=== PATIENT | female | born 1935 | race Caucasian/White ===

== ENCOUNTER → 2016-08-30 | Outpatient (CLI) | payer MEDICARE, OTHER ==
--- NOTE | 2016-09-01 14:46 | ENG ---
DATE OF SERVICE: 08/30/2016 INDICATION FOR EXAMINATION: [id number] presented with the chief complaint of vertigo, described as lightheadedness and at times a spinning sensation and unsteadiness. MEDICATIONS: Tenormin, Lasix, Antivert, Cozaar, aspirin. CALORIC TEST: No unilateral weakness. No directional preponderance. FFS: Negative. GAZE TEST: Negative. SINUSOIDAL TRACKING TEST: No significant breakups. OKN TEST: No asymmetry. POSITIONAL NYSTAGMUS: Supine negative. Right lateral negative. Left lateral negative. Head hanging negative. PIYUSH-HALLPIKE TEST: Negative. CONCLUSION: Normal electronystagmogram.
== END | disposition home or self-care (01) ==
LOC: NEUROMAIN 08:33
PROVIDERS: ATTEND Psychiatry & Neurology Neurology
DX: R42 Dizziness and giddiness (principal)
CPT/HCPCS: 92537; 92540

== ENCOUNTER 2018-01-12 12:40 | Inpatient (IN) | payer MEDICARE, OTHER ==
[2018-01-12] MEDS ORDERED: SODIUM CHLORIDE 0.9% 1,000 ML IV ONE ×2 (13:05→16:48)
--- NOTE | 2018-01-12 13:13 | ED ---
General Adult HPI - General Chief complaint: Altered Mental Status Stated complaint: Altered mental status Time Seen by Provider: 01/12/18 12:50 Source: EMS, RN notes reviewed Mode of arrival: EMS Limitations: language barrier, altered mental status - History of Present Illness Initial comments: This is an 82-year-old female who presents emergency Department complaining of being on the floor. Neighbors found her today but the story is confusing because she has a language barrier. Patient states she may have been on the floor for 7 days she's not incontinent of stool or urine so it is unclear how long she was on the floor. Patient states she's had a long-term dizziness and was dizzy and that is why she ended up on the floor. Patient states she was unable to get up because then she became very weak and couldn't get off the floor on her own. Patient denies any area of specific pain. Patient denies any difficulty breathing or chest pain. Patient denies any vomiting or diarrhea. Patient was aware of the month and year but was unable to tell us what day it was. No family member or caregivers with the patient's was difficult to determine what her baseline normally is and with the language barrier it makes it even more difficult to understand whether she has altered her - Related Data Home Medications Medication Instructions Recorded Confirmed Aspirin [Children's Aspirin] 81 mg PO DAILY 01/12/18 01/12/18 Atenolol [Tenormin] 50 mg PO HS 01/12/18 01/12/18 Atorvastatin Calcium [Lipitor] 10 mg PO DAILY 01/12/18 01/12/18 Furosemide [Lasix] 20 mg PO DAILY 01/12/18 01/12/18 Losartan [Cozaar] 50 mg PO DAILY 01/12/18 01/12/18 Meclizine [Antivert] 25 mg PO HS 01/12/18 01/12/18 Omeprazole 40 mg PO DAILY 01/12/18 01/12/18 Allergies Allergy/AdvReac Type Severity Reaction Status Date / Time No Known Allergies Allergy Verified 01/12/18 13:42 Review of Systems ROS Statement: Those systems with pertinent positive or pertinent negative responses have been documented in the HPI. ROS Other: All systems not noted in ROS Statement are negative. Past Medical History Past Medical History: Unable to Obtain History of Any Multi-Drug Resistant Organisms: Unobtainable Past Surgical History: Unable to Obtain Past Psychological History: Unable to Obtain Smoking Status: Never smoker Past Alcohol Use History: None Reported Past Drug Use History: None Reported General Exam - General Exam Comments Initial Comments: GENERAL: Patient is well-developed and well-nourished. Patient is nontoxic and well- hydrated and is in distress. ENT: Neck is soft and supple. No significant lymphadenopathy is noted. Oropharynx is clear. Moist mucous membranes. Neck has full range of motion without eliciting any pain. EYES: The sclera were anicteric and conjunctiva were pink and moist. Extraocular movements were intact and pupils were equal round and reactive to light. Eyelids were unremarkable. PULMONARY: Patient has crackles in the right base CARDIOVASCULAR: There is a regular rate and rhythm without any murmurs gallops or rubs. ABDOMEN: Soft and nontender with normal bowel sounds. No palpable organomegaly was noted. There is no palpable pulsatile mass. SKIN: Skin is clear with no lesions or rashes and otherwise unremarkable. NEUROLOGIC: Patient is alert and oriented x3. Cranial nerves II through XII are grossly intact. Motor and sensory are also intact. Normal speech, volume and content. Symmetrical smile. MUSCULOSKELETAL: Normal extremities with adequate strength and full range of motion. Patient has a superficial abrasion on the left knee. No lower extremity swelling or edema. No calf tenderness. LYMPHATICS: No significant lymphadenopathy is noted PSYCHIATRIC: Normal psychiatric evaluation. Limitations: language barrier, altered mental status Course Vital Signs 01/12/18 01/12/18 12:47 15:41 Temperature 97.5 F L Pulse Rate 67 51 L Respiratory 20 18 Rate Blood Pressure 124/47 118/55 O2 Sat by Pulse 99 99 Oximetry Medical Decision Making - Medical Decision Making EKG is of poor quality does however show a normal sinus rhythm at 61 bpm IA interval is 182 QRS is 92 QT interval 44 QTC is 487. Patient's EKG does not show any obvious ST segment elevation 1 patient's shaking settled down a repeat EKG was done shows sinus bradycardia 54 bpm IA interval 140 QRS is 90 QT intervals 574 QTC is 455. Patient's EKG showed some T-wave inversions in the precordial leads V3 and V4. No old EKG was there to compare to Chest x-ray shows no acute abnormality. CT of the brain shows no acute abnormality. Patient's urine was possibly infected so I gave the patient antibiotic of Rocephin 1 g. I spoke with the hospitalist for Dr. Angel Robertson and admitted the patient and wrote admitting orders. - Lab Data Result diagrams: 01/12/18 13:47 01/12/18 13:47 Lab Results 01/12/18 01/12/18 01/12/18 Range/Units 13:47 13:47 13:47 WBC 16.2 H (3.8-10.6) k/uL RBC 4.70 (3.80-5.40) m/uL Hgb 12.4 (11.4-16.0) gm/dL Hct 38.2 (34.0-46.0) % MCV 81.3 (80.0-100.0) fL MCH 26.3 (25.0-35.0) pg MCHC 32.4 (31.0-37.0) g/dL RDW 13.9 (11.5-15.5) % Plt Count 362 (150-450) k/uL Neutrophils % 84 % Lymphocytes % 10 % Monocytes % 2 % Eosinophils % 0 % Basophils % 1 % Neutrophils # 13.6 H (1.3-7.7) k/uL Lymphocytes # 1.7 (1.0-4.8) k/uL Monocytes # 0.4 (0-1.0) k/uL Eosinophils # 0.1 (0-0.7) k/uL Basophils # 0.2 (0-0.2) k/uL PT (9.0-12.0) sec INR (<1.2) APTT (22.0-30.0) sec Sodium 137 (137-145) mmol/L Potassium 4.9 (3.5-5.1) mmol/L Chloride 102 (98-107) mmol/L Carbon Dioxide 21 L (22-30) mmol/L Anion Gap 14 mmol/L BUN 66 H (7-17) mg/dL Creatinine 1.86 H (0.52-1.04) mg/dL Est GFR (CKD-EPI)AfAm 29 (>60 ml/min/1.73 sqM) Est GFR (CKD-EPI)NonAf 25 (>60 ml/min/1.73 sqM) Glucose 105 H (74-99) mg/dL Plasma Lactic Acid Bo (0.7-2.0) mmol/L Calcium 9.1 (8.4-10.2) mg/dL Total Bilirubin 1.4 H (0.2-1.3) mg/dL AST 137 H (14-36) U/L ALT 60 H (9-52) U/L Alkaline Phosphatase 98 (38-126) U/L Total Creatine Kinase 996 H (30-135) U/L CK-MB (CK-2) 7.8 H (0.0-2.4) ng/mL CK-MB (CK-2) Rel Index 0.8 Troponin I 0.034 (0.000-0.034) ng/mL Total Protein 8.4 H (6.3-8.2) g/dL Albumin 4.0 (3.5-5.0) g/dL Urine Color Urine Appearance (Clear) Urine pH (5.0-8.0) Ur Specific [place] (1.001-1.035) Urine Protein (Negative) Urine Glucose (UA) (Negative) Urine Ketones (Negative) Urine Blood (Negative) Urine Nitrite (Negative) Urine Bilirubin (Negative) Urine Urobilinogen (<2.0) mg/dL Ur Leukocyte Esterase (Negative) Urine RBC (0-5) /hpf Urine WBC (0-5) /hpf Ur Squamous Epith Cells (0-4) /hpf Urine Bacteria (None) /hpf Hyaline Casts (0-2) /lpf Urine Mucus (None) /hpf Urine Opiates Screen (NotDetected) Ur Oxycodone Screen (NotDetected) Urine Methadone Screen (NotDetected) Ur Propoxyphene Screen (NotDetected) Ur Barbiturates Screen (NotDetected) U Tricyclic Antidepress (NotDetected) Ur Phencyclidine Scrn (NotDetected) Ur Amphetamines Screen (NotDetected) U Methamphetamines Scrn (NotDetected) U Benzodiazepines Scrn (NotDetected) Urine Cocaine Screen (NotDetected) U Marijuana (THC) Screen (NotDetected) 01/12/18 01/12/18 01/12/18 Range/Units 13:47 13:47 15:35 WBC (3.8-10.6) k/uL RBC (3.80-5.40) m/uL Hgb (11.4-16.0) gm/dL Hct (34.0-46.0) % MCV (80.0-100.0) fL MCH (25.0-35.0) pg MCHC (31.0-37.0) g/dL RDW (11.5-15.5) % Plt Count (150-450) k/uL Neutrophils % % Lymphocytes % % Monocytes % % Eosinophils % % Basophils % % Neutrophils # (1.3-7.7) k/uL Lymphocytes # (1.0-4.8) k/uL Monocytes # (0-1.0) k/uL Eosinophils # (0-0.7) k/uL Basophils # (0-0.2) k/uL PT 9.6 (9.0-12.0) sec INR 1.0 (<1.2) APTT 23.0 (22.0-30.0) sec Sodium (137-145) mmol/L Potassium (3.5-5.1) mmol/L Chloride (98-107) mmol/L Carbon Dioxide (22-30) mmol/L Anion Gap mmol/L BUN (7-17) mg/dL Creatinine (0.52-1.04) mg/dL Est GFR (CKD-EPI)AfAm (>60 ml/min/1.73 sqM) Est GFR (CKD-EPI)NonAf (>60 ml/min/1.73 sqM) Glucose (74-99) mg/dL Plasma Lactic Acid Bo 1.4 (0.7-2.0) mmol/L Calcium (8.4-10.2) mg/dL Total Bilirubin (0.2-1.3) mg/dL AST (14-36) U/L ALT (9-52) U/L Alkaline Phosphatase (38-126) U/L Total Creatine Kinase (30-135) U/L CK-MB (CK-2) (0.0-2.4) ng/mL CK-MB (CK-2) Rel Index Troponin I (0.000-0.034) ng/mL Total Protein (6.3-8.2) g/dL Albumin (3.5-5.0) g/dL Urine Color Yellow Urine Appearance Cloudy H (Clear) Urine pH 5.5 (5.0-8.0) Ur Specific [place] 1.016 (1.001-1.035) Urine Protein 1+ H (Negative) Urine Glucose (UA) Negative (Negative) Urine Ketones Negative (Negative) Urine Blood Small H (Negative) Urine Nitrite Negative (Negative) Urine Bilirubin Negative (Negative) Urine Urobilinogen 2.0 (<2.0) mg/dL Ur Leukocyte Esterase Moderate H (Negative) Urine RBC 1 (0-5) /hpf Urine WBC 9 H (0-5) /hpf Ur Squamous Epith Cells 1 (0-4) /hpf Urine Bacteria Many H (None) /hpf Hyaline Casts 13 H (0-2) /lpf Urine Mucus Occasional H (None) /hpf Urine Opiates Screen Not Detected (NotDetected) Ur Oxycodone Screen Not Detected (NotDetected) Urine Methadone Screen Not Detected (NotDetected) Ur Propoxyphene Screen Not Detected (NotDetected) Ur Barbiturates Screen Not Detected (NotDetected) U Tricyclic Antidepress Not Detected (NotDetected) Ur Phencyclidine Scrn Not Detected (NotDetected) Ur Amphetamines Screen Not Detected (NotDetected) U Methamphetamines Scrn Not Detected (NotDetected) U Benzodiazepines Scrn Not Detected (NotDetected) Urine Cocaine Screen Not Detected (NotDetected) U Marijuana (THC) Screen Not Detected (NotDetected) Disposition Clinical Impression: Urinary tract infection, Renal insufficiency, Altered mental status, Generalized weakness, Leukocytosis, Dehydration Disposition: ADMITTED IP TO THIS HOSP Referrals: Angel Robertson MD [Primary Care Provider] - 1-2 days Time of Disposition: 16:48
[2018-01-12 14:07] LABS: Basophils # (A) 0.2 k/uL (0-0.2); Basophils % (A) 1 %; Eosinophils # (A) 0.1 k/uL (0-0.7); Eosinophils % (A) 0 %; HCT 38.2 % (34.0-46.0); HGB 12.4 gm/dL (11.4-16.0); Lymphocytes # (A) 1.7 k/uL (1.0-4.8); Lymphocytes % (A) 10 %; MCH 26.3 pg (25.0-35.0); MCHC 32.4 g/dL (31.0-37.0); MCV 81.3 fL (80.0-100.0); Mean Platelet Volume 7.1; Monocytes # (A) 0.4 k/uL (0-1.0); Monocytes % (A) 2 %; Neutrophils # (A) 13.6 k/uL (1.3-7.7); Neutrophils % (A) 84 %; Platelet Count 362 k/uL (150-450); RDW 13.9 % (11.5-15.5); WBC 16.2 k/uL (3.8-10.6)
--- NOTE | 2018-01-12 14:10 | CT ---
EXAMINATION TYPE: CT brain wo con DATE OF EXAM: 01/12/2018 HISTORY: Altered mental status. CT DLP: 858.3 mGycm. Automated Exposure Control for Dose Reduction was Utilized. TECHNIQUE: CT scan of the head is performed without contrast. COMPARISON: None. FINDINGS: There is no acute intracranial hemorrhage or midline shift identified. There is diffuse v entricular and sulcal prominence consistent with diffuse age-related cerebral atrophy. There is low- attenuation in the periventricular white matter consistent with chronic small vessel ischemic change. There are air-fluid levels in visualized portion of both maxillary sinuses. There is mild mucosal th ickening in bilateral sphenoid sinus with air-fluid level on the right side present. There are air-fl uid levels in bilateral frontal sinuses. There is near complete opacification of bilateral ethmoid si nuses. Globes are intact bilaterally. Vascular dilatation distal internal carotid arteries is present . IMPRESSION: No acute intracranial hemorrhage or midline shift. There is moderate diffuse age-relate d cerebral atrophy and mild to moderate chronic small vessel ischemic change noted. Acute on chronic paranasal sinus disease is seen as detailed above
[2018-01-12 14:28] LABS: Calcium 9.1 mg/dL (8.4-10.2); Total Bilirubin 1.4 mg/dL (0.2-1.3); Total Protein 8.4 g/dL (6.3-8.2)
[2018-01-12 14:37] LABS: Potassium 4.9 mmol/L (3.5-5.1)
[2018-01-12 14:43] LABS: Creatine Kinase MB 7.8 ng/mL (0.0-2.4); Troponin I 0.034 ng/mL (0.000-0.034)
--- NOTE | 2018-01-12 14:45 | XR ---
EXAMINATION TYPE: XR chest 2V DATE OF EXAM: 01/12/2018 COMPARISON: NONE HISTORY: Altered mental status and weakness. TECHNIQUE: Frontal and lateral views of the chest are obtained. FINDINGS: There is chronic parenchymal change without suspicious focal air space opacity, pleural ef fusion, or pneumothorax seen. The cardiac silhouette size is upper limits of normal. The osseous s tructures are demineralized. Dextroconvex scoliosis centered in the lower thoracic spine is present. IMPRESSION: No suspicious acute pulmonary process.
[2018-01-12 14:46] LABS: Prothrombin Time 9.6 sec (9.0-12.0)
[2018-01-12 15:52] LABS: Appearance,Urine Cloudy (Clear); Bacteria,Urine Many /hpf; Bilirubin,Urine Negative (Negative); Blood,Urine Small (Negative); Color,Urine Yellow; Glucose,Urine (UA) Negative (Negative); Hyaline Casts,Urine 13 /lpf (0-2); Ketones,Urine Negative (Negative); Leukocyte Esterase,Urine Moderate (Negative); Mucus,Urine Occasional /hpf; Nitrite,Urine Negative (Negative); PH, Urine 5.5 (5.0-8.0); Protein,Urine 1+ (Negative); RBC,Urine 1 /hpf (0-5); Specific Gravity,Urine 1.016 (1.001-1.035); Squamous Epithelial Cell,Urine 1 /hpf (0-4); WBC,Urine 9 /hpf (0-5)
[2018-01-12 16:03] LABS: Amphetamine Screen,Urine Not Detected (NotDetected); Barbiturate Screen,Urine Not Detected (NotDetected); Benzodiazepines Screen,Urine Not Detected (NotDetected); Cocaine Screen,Urine Not Detected (NotDetected); Methadone Screen, Urine Not Detected (NotDetected); Opiate Screen,Urine Not Detected (NotDetected); Oxycodone Screen, Urine Not Detected (NotDetected); Phencyclidine Screen,Urine Not Detected (NotDetected); Tricyclic Antidepressant,Urine Not Detected (NotDetected); Urn Cannabinoid Scrn Not Detected (NotDetected)
[2018-01-12] MEDS: ATENOLOL 50 MG TAB PO SCH (21:28)
[2018-01-12] MEDS: MECLIZINE 25 MG TAB PO SCH (21:29)
[2018-01-12] MEDS: HEPARIN SODIUM,PORCINE 5,000 UNIT/ML 1 ML VIAL SQ SCH (21:29)
[2018-01-13 07:16] LABS: Basophils # (A) 0.2 k/uL (0-0.2); Basophils % (A) 1 %; Eosinophils # (A) 0.1 k/uL (0-0.7); Eosinophils % (A) 0 %; HCT 33.9 % (34.0-46.0); Lymphocytes # (A) 1.7 k/uL (1.0-4.8); Lymphocytes % (A) 13 %; MCH 26.2 pg (25.0-35.0); MCHC 32.5 g/dL (31.0-37.0); MCV 80.6 fL (80.0-100.0); Mean Platelet Volume 6.7; Monocytes # (A) 0.3 k/uL (0-1.0); Monocytes % (A) 3 %; Neutrophils # (A) 10.9 k/uL (1.3-7.7); Neutrophils % (A) 81 %; Platelet Count 267 k/uL (150-450); RBC 4.21 m/uL (3.80-5.40); WBC 13.5 k/uL (3.8-10.6)
[2018-01-13 07:25] LABS: Calcium 8.4 mg/dL (8.4-10.2); Potassium 3.1 mmol/L (3.5-5.1)
[2018-01-13] MEDS: ASPIRIN 81 MG PO SCH (10:30)
[2018-01-13] MEDS: LOSARTAN 50 MG TAB PO SCH (10:30)
[2018-01-13] MEDS: PANTOPRAZOLE 40 MG TABLET PO SCH (10:30)
[2018-01-13] MEDS: HEPARIN SODIUM,PORCINE 5,000 UNIT/ML 1 ML VIAL SQ SCH ×3 (10:30→19:56)
[2018-01-13] MEDS: ATORVASTATIN 10 MG TAB PO SCH (10:30)
--- NOTE | 2018-01-13 12:04 | P.HPIM ---
History of Present Illness H&P Date: 01/13/18 Chief Complaint: Patient was found on the floor by a neighbor This is an 82-year-old female one of Dr. 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 history significant for hypertension and hypertensive cardiovascular disease, hyperlipidemia, history of possible arthritis, patient definitely has a significant leg with barrier could not tell me exactly what happened however by reviewing the records from the emergency department patient was brought into the ER by EMS after neighbor found her on the floor according to them for appears to be more than 7 days, patient's CPK was elevated at 1000, she was found to have a mild UTI, computed tomography scan of the brain did not show any evidence of acute abnormalities, she does appear to have moderate brain atrophy, chest x-ray did not show any acute abnormalities, patient also was found to have acute kidney injury on top of what appears to be chronic kidney disease. She was started on IV fluid resuscitation the form of normal saline, this would be switched to D5 half-normal saline at 75 mL an hour. Review of Systems Constitutional: Reports fatigue, Reports malaise, Reports weakness Eyes: denies blurred vision, denies bulging eye, denies decreased vision, denies diplopia Ears: deny: decreased hearing Ears, nose, mouth and throat: Denies dysphagia, Denies neck fullness/pressure, Denies swelling in throat, Denies sore throat Cardiovascular: Reports dyspnea on exertion, Reports high blood pressure, Denies chest pain, Denies decreased exercise tolerance, Denies rapid heart beat , Denies shortness of breath Respiratory: Denies congestion, Denies cough with sputum, Denies home oxygen, Denies sleep apnea, Denies snoring, Denies wheezing Gastrointestinal: Denies abdominal pain, Denies bloating, Denies BRBPR, Denies heartburn, Denies melena, Denies nausea, Denies vomiting Genitourinary: Denies dysuria, Denies hematuria Musculoskeletal: Reports myalgias Musculoskeletal: absent: ankle pain, ankle stiffness, ankle swelling, elbow pain , elbow stiffness, elbow swelling, foot pain, foot stiffness, foot swelling, hand pain, hand stiffness, hand swelling, hip pain, hip stiffness, hip swelling , knee pain, knee stiffness, knee swelling, shoulder pain, shoulder stiffness, shoulder swelling, wrist pain, wrist stiffness, wrist swelling Integumentary: Denies pruritus, Denies rash Neurological: Denies numbness, Denies weakness Psychiatric: Denies anxiety, Denies depression Endocrine: Denies fatigue, Denies weight change Past Medical History Past Medical History: GERD/Reflux, Hyperlipidemia, Hypertension, Osteoarthritis (OA) History of Any Multi-Drug Resistant Organisms: Unobtainable Additional Past Surgical History / Comment(s): Bilateral cataract surgery. Past Psychological History: Unable to Obtain Smoking Status: Never smoker Past Alcohol Use History: None Reported Past Drug Use History: None Reported - Past Family History Mother Family Medical History: Coronary Artery Disease (CAD) (Mother in her 90s from CAD.) Father Family Medical History: No Reported History (Father in his 80s) Additional Family Medical History / Comment(s): Patient does not have any siblings and no kids. Medications and Allergies Home Medications Medication Instructions Recorded Confirmed Type Aspirin [Children's Aspirin] 81 mg PO DAILY 01/12/18 01/12/18 History Atenolol [Tenormin] 50 mg PO HS 01/12/18 01/12/18 History Atorvastatin Calcium [Lipitor] 10 mg PO DAILY 01/12/18 01/12/18 History Furosemide [Lasix] 20 mg PO DAILY 01/12/18 01/12/18 History Losartan [Cozaar] 50 mg PO DAILY 01/12/18 01/12/18 History Meclizine [Antivert] 25 mg PO HS 01/12/18 01/12/18 History Omeprazole 40 mg PO DAILY 01/12/18 01/12/18 History Allergies Allergy/AdvReac Type Severity Reaction Status Date / Time No Known Allergies Allergy Verified 01/12/18 13:42 Physical Exam Vitals: Vital Signs Temp Pulse Pulse Resp BP BP Pulse Ox 01/13/18 06:02 98.7 F 63 18 103/55 94 L 01/12/18 23:00 96.9 F L 58 L 16 123/59 94 L 01/12/18 19:01 97.4 F L 61 16 119/58 96 01/12/18 18:05 98.8 F 56 L 16 140/61 100 01/12/18 15:41 51 L 18 118/55 99 01/12/18 12:47 97.5 F L 67 20 124/47 99 Intake and Output 01/12/18 01/13/18 01/13/18 22:59 06:59 14:59 Other: Voiding Method Bedside Commode # Voids 1 1 # Bowel Movements 1 1 - Constitutional General appearance: average body habitus, no acute distress - EENT Eyes: anicteric sclerae, EOMI, PERRLA, no ptosis, no scleral icterus, normal appearance ENT: hearing grossly normal, normal oropharynx, no thrush Ears: bilateral: normal - Neck Neck: no lymphadenopathy, normal ROM, no rigidity, no stridor Carotids: bilateral: upstroke normal Thyroid: bilateral: normal size - Respiratory Respiratory: bilateral: diminished, negative: dullness, rales, rhonchi, wheezing , prolonged expiration, prolonged inspiration - Cardiovascular Rhythm: regular Heart sounds: normal: S1, S2 Abnormal Heart Sounds: systolic murmur, no S3 Gallop, no S4 Gallop - Gastrointestinal General gastrointestinal: normal bowel sounds, soft, no splenomegaly, no tenderness, no umbilical hernia - Integumentary Integumentary: normal, normal turgor - Neurologic Neurologic: CNII-XII intact - Musculoskeletal Musculoskeletal: generalized weakness - Psychiatric Psychiatric: A&O x's 3 Results CBC & Chem 7: 01/13/18 06:57 01/13/18 06:57 Labs: Abnormal Lab Results - Last 24 Hours (Table) 01/12/18 01/12/18 01/12/18 Range/Units 13:47 13:47 13:47 WBC 16.2 H (3.8-10.6) k/uL Hgb (11.4-16.0) gm/dL Hct (34.0-46.0) % Neutrophils # 13.6 H (1.3-7.7) k/uL Potassium (3.5-5.1) mmol/L Chloride (98-107) mmol/L Carbon Dioxide 21 L (22-30) mmol/L BUN 66 H (7-17) mg/dL Creatinine 1.86 H (0.52-1.04) mg/dL Glucose 105 H (74-99) mg/dL Total Bilirubin 1.4 H (0.2-1.3) mg/dL AST 137 H (14-36) U/L ALT 60 H (9-52) U/L Total Creatine Kinase 996 H (30-135) U/L CK-MB (CK-2) 7.8 H (0.0-2.4) ng/mL Total Protein 8.4 H (6.3-8.2) g/dL Urine Appearance (Clear) Urine Protein (Negative) Urine Blood (Negative) Ur Leukocyte Esterase (Negative) Urine WBC (0-5) /hpf Urine Bacteria (None) /hpf Hyaline Casts (0-2) /lpf Urine Mucus (None) /hpf 01/12/18 01/13/18 01/13/18 Range/Units 15:35 06:57 06:57 WBC 13.5 H (3.8-10.6) k/uL Hgb 11.0 L (11.4-16.0) gm/dL Hct 33.9 L (34.0-46.0) % Neutrophils # 10.9 H (1.3-7.7) k/uL Potassium 3.1 L (3.5-5.1) mmol/L Chloride 109 H (98-107) mmol/L Carbon Dioxide 20 L (22-30) mmol/L BUN 56 H (7-17) mg/dL Creatinine 1.49 H (0.52-1.04) mg/dL Glucose (74-99) mg/dL Total Bilirubin (0.2-1.3) mg/dL AST (14-36) U/L ALT (9-52) U/L Total Creatine Kinase (30-135) U/L CK-MB (CK-2) (0.0-2.4) ng/mL Total Protein (6.3-8.2) g/dL Urine Appearance Cloudy H (Clear) Urine Protein 1+ H (Negative) Urine Blood Small H (Negative) Ur Leukocyte Esterase Moderate H (Negative) Urine WBC 9 H (0-5) /hpf Urine Bacteria Many H (None) /hpf Hyaline Casts 13 H (0-2) /lpf Urine Mucus Occasional H (None) /hpf Thrombosis Risk Factor Assmnt - DVT/VTE Prophylaxis DVT/VTE Prophylaxis: Pharmacologic Prophylaxis ordered, Mechanical Prophylaxis ordered Assessment and Plan Assessment: Assessment and plan: 1. Possible syncopal episode. Patient will be monitored for the next 24 hours on the telemetry. Patient has suffered from significant diseases for quite sometime as a matter fact she has been taking meclizine not short of this is peripheral dizziness or other etiology such as cardiac arrhythmias was involved. 2. UTI with sepsis. Continue IV anabiotic in the form of Rocephin, continue IV fluid resuscitation the form of D5 half-normal saline at 75 mL an hour, monitor the patient input and output, check urine culture and blood culture. 3. Acute kidney injury on top of chronic kidney disease stage III. Continue IV fluid resuscitation, monitor the patient CMP over the next 24 hours. 4. Elevated CPK with mild rhabdo. Continue IV fluid check CPK again the next 24 hours. 5. Hypertension and hypertensive cardiovascular disease. Continue losartan 50 mg orally once every day as well as atenolol 50 mg orally once every day. 6. Hyperlipidemia. Continue Lipitor 10 mg orally once every day. 7. GERD. Continue Protonix 40 mg orally once every day. 8. DVT prophylaxis. Continue heparin 5000 units every 12 hours. 9. Patient is full code. 10. Admitted to inpatient. Estimated length of stay 2 midnights. 11. Social work consultation as well as physical therapy evaluation.
[2018-01-13] MEDS ORDERED: POTASSIUM CHLORIDE ER 20 MEQ TAB.ER PO STA (12:07)
[2018-01-13] MEDS: SODIUM CHLORIDE 0.45% 1,000 ML IV SCH (12:42)
--- NOTE | 2018-01-13 17:22 | US ---
EXAMINATION TYPE: US carotid duplex BILAT DATE OF EXAM: 01/13/2018 COMPARISON: NONE CLINICAL HISTORY: syncope. EXAM MEASUREMENTS: RIGHT: Peak Systolic Velocity (PSV) cm/sec ----- Right CCA: 101.1 ----- Right ICA: 296.1 ----- Right ECA: 180.3 ICA/CCA ratio: 2.9 RIGHT: End Diastole cm/sec ----- Right CCA: 19.8 ----- Right ICA: 60.1 ----- Right ECA: 0.0 LEFT: Peak Systolic Velocity (PSV) cm/sec ----- Left CCA: 140.8 ----- Left ICA: 203.5 ----- Left ECA: 157.8 ICA/CCA ratio: 1.4 LEFT: End Diastole cm/sec ----- Left CCA: 17.7 ----- Left ICA: 29.3 ----- Left ECA: 0.0 VERTEBRALS (direction of flow): Right Vertebral: Antegrade Left Vertebral: Antegrade Exam limitations due to portable environment, high bifurcation and vessel movement. 1. Moderate plaque within bilateral bulbs. 2. Some elevated velocities with both prox ICAs (right greater than left). 3. Significant stenosis within dee dee prox ICAs. IMPRESSION: There is antegrade flow in the vertebral arteries. There is significant bilateral plaque formation. Images in measurements suggest more than 70% stenosi s in both internal carotid arteries. Criteria for Assigning % of Stenosis / Diameter reduction (Estimation based on the indirect measurements of the internal carotid artery velocities (ICA PSV). 1. Normal (no stenosis)=ICA PSV < 125 cm/s: ratio < 2.0: ICA EDV<40 cm/s. 2. Less than 50% stenosis=ICA PSV < 125 cm/s: ratio < 2.0: ICA EDV<40 cm/s. 3. 50 to 69% stenosis=ICA PSV of 125 to 230 cm/s: ration 2.0 ? 4.0: ICA EDV 40-100 cm/s. 4. Greater than 70% stenosis to near occlusion= ICA PSV > 230 cm/s: ratio > 4.0: ICA EDV > 100 cm/s. 5. Near occlusion= ICA PSV velocities may be low or undetectable: variable ratio and ICA EDV. 6. Total occlusion=unable to detect flow.
[2018-01-13] MEDS: MECLIZINE 25 MG TAB PO SCH (19:56)
[2018-01-13] MEDS: ATENOLOL 50 MG TAB PO SCH (19:56)
--- NOTE | 2018-01-13 21:13 | P.CNNES ---
History of Present Illness Consult date: 01/13/18 History of Present Illness: The patient 82-year-old Yor[place] female who lives alone and was found on the floor of her home by a neighbor. The neighbor brought her to the ER. Patient has a language barrier she does not speak Khmer very fluently. According to the record the patient had told the emergency room physician that she had been on the floor for 7 days. Over she was not found to be incontinent of stool or urine and that history was questionable. Her CPK was elevated at 996 She was admitted with UTI, renal insufficiency, general weakness, dehydration, leukocytosis and altered mental status. The patient denies pain. She does admit to chronic leg pains which she's had for 2 years. She had a CAT scan of the brain which showed moderate age-related atrophy and moderate small vessel ischemic change as well as sinus disease. She had a carotid ultrasound which showed over 70% stenosis bilaterally she does follow commands. She does have a cough. He states he was done in the emergency room and apparently showed no acute abnormality. She was started on antibiotic for UTI. Patient was found to have acute kidney injury. According to the ER record the patient had said she had had some dizziness and had fallen because of dizziness. Review of Systems ROS unobtainable: due to mental status Past Medical History Past Medical History: GERD/Reflux, Hyperlipidemia, Hypertension, Osteoarthritis (OA) History of Any Multi-Drug Resistant Organisms: Unobtainable Past Surgical History: Unable to Obtain Additional Past Surgical History / Comment(s): Bilateral cataract surgery. Past Psychological History: Unable to Obtain Smoking Status: Never smoker Past Alcohol Use History: None Reported Past Drug Use History: None Reported - Past Family History Mother Family Medical History: Coronary Artery Disease (CAD) (Mother in her 90s from CAD.) Father Family Medical History: No Reported History (Father in his 80s) Additional Family Medical History / Comment(s): Patient does not have any siblings and no kids. Medications and Allergies Home Medications Medication Instructions Recorded Confirmed Type Aspirin [Children's Aspirin] 81 mg PO DAILY 01/12/18 01/12/18 History Atenolol [Tenormin] 50 mg PO HS 01/12/18 01/12/18 History Atorvastatin Calcium [Lipitor] 10 mg PO DAILY 01/12/18 01/12/18 History Furosemide [Lasix] 20 mg PO DAILY 01/12/18 01/12/18 History Losartan [Cozaar] 50 mg PO DAILY 01/12/18 01/12/18 History Meclizine [Antivert] 25 mg PO HS 01/12/18 01/12/18 History Omeprazole 40 mg PO DAILY 01/12/18 01/12/18 History Allergies Allergy/AdvReac Type Severity Reaction Status Date / Time No Known Allergies Allergy Verified 01/12/18 13:42 Physical Examination - Vital Signs Vital Signs: Vital Signs Temp Pulse Resp BP Pulse Ox 01/13/18 20:00 69 18 01/13/18 19:00 99.6 F 69 18 128/69 94 L 01/13/18 16:31 97.9 F 64 16 94/44 92 L 01/13/18 06:02 98.7 F 63 18 103/55 94 L 01/12/18 23:00 96.9 F L 58 L 16 123/59 94 L Intake and Output 01/13/18 01/13/18 01/13/18 06:59 14:59 22:59 Other: Voiding Method Incontinent Incontinent # Voids 1 # Bowel Movements 1 - Constitutional General appearance: average body habitus - EENT EENT: PERRL, hearing intact, vision intact - Respiratory Respiratory: lungs clear - Cardiovascular Cardiovascular: regular rate, normal S1, normal S2 - Neurologic Neurologic examination: X Mental status: She was sleepy but easily arousable and was able to speak. She had difficulty understanding and there was a language barrier. She the words that she did speak were appropriate. There was no evidence of a aphasia. She did follow commands. Cranial nerves II through XII are grossly intact Motor examination she was able to lift all 4 extremities up against gravity area and there was general weakness. X Sensory examination was intact to light touch Deep tendon reflexes were trace X Gait could not be tested Results - Laboratory Findings CBC and BMP: 01/13/18 06:57 01/13/18 06:57 Abnormal Lab Findings: Abnormal Labs 01/12/18 01/12/18 01/12/18 13:47 13:47 13:47 WBC 16.2 H Hgb Hct Neutrophils # 13.6 H Potassium Chloride Carbon Dioxide 21 L BUN 66 H Creatinine 1.86 H Glucose 105 H Total Bilirubin 1.4 H AST 137 H ALT 60 H Total Creatine Kinase 996 H CK-MB (CK-2) 7.8 H Total Protein 8.4 H Urine Appearance Urine Protein Urine Blood Ur Leukocyte Esterase Urine WBC Urine Bacteria Hyaline Casts Urine Mucus 01/12/18 01/13/18 01/13/18 15:35 06:57 06:57 WBC 13.5 H Hgb 11.0 L Hct 33.9 L Neutrophils # 10.9 H Potassium 3.1 L Chloride 109 H Carbon Dioxide 20 L BUN 56 H Creatinine 1.49 H Glucose Total Bilirubin AST ALT Total Creatine Kinase CK-MB (CK-2) Total Protein Urine Appearance Cloudy H Urine Protein 1+ H Urine Blood Small H Ur Leukocyte Esterase Moderate H Urine WBC 9 H Urine Bacteria Many H Hyaline Casts 13 H Urine Mucus Occasional H Assessment and Plan (1) Generalized weakness Current Visit: Yes Status: Acute SNOMED Code(s): 54136914 (2) Dehydration Current Visit: Yes Status: Acute SNOMED Code(s): 56800788 (3) Urinary tract infection Current Visit: Yes Status: Acute SNOMED Code(s): 91761321 (4) Renal insufficiency Current Visit: Yes Status: Acute SNOMED Code(s): 426216520 (5) History of dizziness Current Visit: Yes Status: Acute SNOMED Code(s): 725280692 (6) Bilateral carotid artery stenosis Current Visit: Yes Status: Acute SNOMED Code(s): 17843707 Plan: The patient is a 82-year-old woman who was found at her home on the floor. She was admitted to the hospital with elevated CPK, confusion, dehydration, UTI, and acute on chronic kidney disease. She had a CT of the brain which showed age -related cerebral atrophy and chronic small vessel ischemic change. She had a carotid ultrasound that shows bilateral carotid stenosis. She gives a prior history of dizziness which she states caused her to fall.. Recommend vascular surgery consultation. Recommend EEG.
[2018-01-14] MEDS: SODIUM CHLORIDE 0.45% 1,000 ML IV SCH (05:23)
[2018-01-14] MEDS: ATORVASTATIN 10 MG TAB PO SCH (09:06)
[2018-01-14] MEDS: PANTOPRAZOLE 40 MG TABLET PO SCH (09:06)
[2018-01-14] MEDS: ASPIRIN 81 MG PO SCH (09:06)
[2018-01-14] MEDS: HEPARIN SODIUM,PORCINE 5,000 UNIT/ML 1 ML VIAL SQ SCH ×2 (09:06→20:43)
[2018-01-14] MEDS: LOSARTAN 50 MG TAB PO SCH (09:06)
[2018-01-14] MEDS ORDERED: POTASSIUM CHLORIDE ER 20 MEQ TAB.ER PO STA (10:57)
[2018-01-14 11:00] LABS: Albumin 2.7 g/dL (3.5-5.0); Magnesium 2.1 mg/dL (1.6-2.3); Potassium 3.3 mmol/L (3.5-5.1); Total Bilirubin 0.4 mg/dL (0.2-1.3); Total Protein 5.7 g/dL (6.3-8.2)
[2018-01-14 11:33] LABS: HCT 30.5 % (34.0-46.0); HGB 10.2 gm/dL (11.4-16.0); MCH 27.2 pg (25.0-35.0); MCHC 33.5 g/dL (31.0-37.0); MCV 81.2 fL (80.0-100.0); Mean Platelet Volume 7.6; Platelet Count 255 k/uL (150-450); RBC 3.76 m/uL (3.80-5.40); WBC 15.1 k/uL (3.8-10.6)
--- NOTE | 2018-01-14 13:12 | P.PN ---
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 history significant for hypertension and hypertensive cardiovascular disease, hyperlipidemia, history of possible arthritis, patient definitely has a significant leg with barrier could not tell me exactly what happened however by reviewing the records from the emergency department patient was brought into the ER by EMS after neighbor found her on the floor according to them for appears to be more than 7 days, patient's CPK was elevated at 1000, she was found to have a mild UTI, computed tomography scan of the brain did not show any evidence of acute abnormalities, she does appear to have moderate brain atrophy, chest x-ray did not show any acute abnormalities, patient also was found to have acute kidney injury on top of what appears to be chronic kidney disease. She was started on IV fluid resuscitation the form of normal saline, this would be switched to D5 half-normal saline at 75 mL an hour. 01/14: Patient evaluated this morning, she reports she is feeling well. Carotid ultrasound shows significant bilateral plaque formation and are suggestive of more then 70% stenosis in both internal carotid arteries. Vascular surgery has been consulted. Kidney function improved, creatinine 1.07, BUN 29. EEG and echo are pending. She continues of Ceftriaxone for her UTI. Objective - Vital Signs Vital signs: Vital Signs Temp 98.3 F 01/14/18 00:00 Pulse 67 01/14/18 03:19 Resp 18 01/14/18 03:19 BP 129/57 01/14/18 00:00 Pulse Ox 94 L 01/14/18 00:00 Intake & Output 01/13/18 01/14/18 01/14/18 18:59 06:59 18:59 Intake Total 225 Balance 225 Intake: Intake, IV Titration 225 Amount Sodium Chloride 0.45% 1, 225 000 ml @ 75 mls/hr IV . [id number] [facility] Rx#:[id number] Other: Voiding Method Incontinent Incontinent # Voids 1 - Exam - Constitutional General appearance: average body habitus, no acute distress - EENT Eyes: anicteric sclerae, EOMI, PERRLA, no ptosis, no scleral icterus, normal appearance ENT: hearing grossly normal, normal oropharynx, no thrush Ears: bilateral: normal - Neck Neck: no lymphadenopathy, normal ROM, no rigidity, no stridor Carotids: bilateral: upstroke normal Thyroid: bilateral: normal size - Respiratory Respiratory: bilateral: diminished, negative: dullness, rales, rhonchi, wheezing , prolonged expiration, prolonged inspiration - Cardiovascular Rhythm: regular Heart sounds: normal: S1, S2 Abnormal Heart Sounds: systolic murmur, no S3 Gallop, no S4 Gallop - Gastrointestinal General gastrointestinal: normal bowel sounds, soft, no splenomegaly, no tenderness, no umbilical hernia - Integumentary Integumentary: normal, normal turgor - Neurologic Neurologic: CNII-XII intact - Musculoskeletal Musculoskeletal: generalized weakness - Psychiatric Psychiatric: A&O x's 3 - Labs CBC & Chem 7: 01/14/18 08:58 01/14/18 08:58 Assessment and Plan Plan: 1. Possible syncopal episode. Patient will be monitored for the next 24 hours on the telemetry. Patient has suffered from significant diseases for quite sometime as a matter fact she has been taking meclizine not short of this is peripheral dizziness or other etiology such as cardiac arrhythmias was involved. Carotid ultrasound shows carotid stenosis, vascular surgery on consult. 2. UTI with sepsis. Continue IV anabiotic in the form of Rocephin, continue IV fluid resuscitation the form of D5 half-normal saline at 75 mL an hour, IV fluids are saline locked, monitor the patient input and output, check urine culture and blood culture. 3. Acute kidney injury on top of chronic kidney disease stage III. monitor the patient CMP over the next 24 hours, kidney function has improved 4. Elevated CPK with mild rhabdo. Continue IV fluid check CPK again the next 24 hours. 5. Hypertension and hypertensive cardiovascular disease. Continue losartan 50 mg orally once every day as well as atenolol 50 mg orally once every day. 6. Hyperlipidemia. Continue Lipitor 10 mg orally once every day. 7. GERD. Continue Protonix 40 mg orally once every day. 8. DVT prophylaxis. Continue heparin 5000 units every 12 hours. 9. Patient is full code. 10. Admitted to inpatient. Estimated length of stay 2 midnights. 11. Social work consultation as well as physical therapy evaluation. The above impression and plan of care have been discussed and directed by signing physician. Stacie Gonzáles nurse practitioner acting as scribe for signing physician.
[2018-01-14 14:48] LABS: Band Neutrophils % 5 %; Lymphocytes # (M) 1.51 k/uL (1.0-4.8); Metamyelocytes # (M) 0.45 k/uL (0); Metamyelocytes % 3 %; Myelocytes # (M) 0.76 k/uL (0); Myelocytes % 5 %; Neutrophils % (M) 77 %; Nucleated Red Blood Cells 0 /100 WBC (0-0); Total Cells Counted 200
[2018-01-14 14:50] LABS: Toxic Granulation Present
[2018-01-14 14:52] LABS: Anisocytosis (M) Present; Poikilocytosis (M) Present
--- NOTE | 2018-01-14 18:59 | ECHOF ---
Referral Reason:syncope MEASUREMENTS -------- HEIGHT: 165.1 cm WEIGHT: 62.6 kg BP: 129/57 IVSd: 1.0 cm (0.6 - 1.1) LVIDd: 3.7 cm (3.9 - 5.3) LVPWd: 0.9 cm (0.6 - 1.1) IVSs: 1.2 cm LVIDs: 2.1 cm LVPWs: 1.2 cm LAESV Index (A-L): 25.09 ml/m Ao Diam: 2.9 cm (2.0 - 3.7) LA Diam: 3.4 cm (2.7 - 3.8) AV Cusp: 1.9 cm (1.5 - 2.6) EPSS: 0.5 cm MV E Jimmy: 0.88 m/s MV DecT: 223 ms MV A Jimmy: 0.86 m/s MV E/A Ratio: 1.02 RAP: 5.00 mmHg RVSP: 9.21 mmHg MV EF SLOPE: 89.95 mm/s (70 - 150) MV EXCURSION: 1.99 cm (> 18.000) FINDINGS -------- Sinus rhythm. This was a technically adequate study. The left ventricular size is normal. Left ventricular wall thickness is normal. Overall left vent ricular systolic function is normal with, an EF between 55 - 60 %. The right ventricle is normal in size and function. Normal LA size by volume 22+/-6 ml/m2. The right atrium is normal in size. There is mild aortic valve sclerosis. There is no evidence of aortic regurgitation. There is no e vidence of aortic stenosis. The mitral valve leaflets are mildly thickened. Mild mitral annular calcification present. There is trace to mild mitral regurgitation. Trace tricuspid regurgitation present. Right ventricular systolic pressure is normal at < 35 mmHg. There is no evidence of pulmonary hypertension. The pulmonic valve was not well visualized. The aortic root size is normal. Normal inferior vena cava with normal inspiratory collapse consistent with estimated right atrial pre ssure of 5 mmHg. There is no pericardial effusion. CONCLUSIONS -------- 1. Sinus rhythm. 2. This was a technically adequate study. 3. The left ventricular size is normal. 4. Left ventricular wall thickness is normal. 5. Overall left ventricular systolic function is normal with, an EF between 55 - 60 %. 6. Normal LA size by volume 22+/-6 ml/m2. 7. There is mild aortic valve sclerosis. 8. The mitral valve leaflets are mildly thickened. 9. Mild mitral annular calcification present. 10. There is trace to mild mitral regurgitation. 11. Trace tricuspid regurgitation present. 12. Right ventricular systolic pressure is normal at < 35 mmHg. 13. There is no evidence of pulmonary hypertension. 14. The pulmonic valve was not well visualized. 15. The aortic root size is normal. 16. There is no pericardial effusion. INCINERATOR ATTENDANT: Irwin Venegas RDCS
--- NOTE | 2018-01-14 19:54 | CONS ---
CONSULTATION This patient is an 82-year-old female. She was brought into the emergency room. She was found at home on the floor with incontinence of urine. Patient's CPK was elevated to 996. She also was admitted with UTI and renal insufficiency and weakness, dehydration, leukocytosis and mental status. Patient had a stroke workup. CT scan of the brain was found to have no intracranial bleed or intracranial hemorrhage. The patient had a carotid ultrasound. The patient has 70% stenosis bilaterally. MEDICAL HISTORY: History of hyperlipidemia, hypertension. The patient was seen in her room. She was lying comfortably in bed. Neck was supple, trachea central. Chest was clear to auscultation. Abdomen was soft. Femoral pulses were present. Patient had normal motor function, upper and lower extremities. Ultrasound shows bilateral 70% stenosis. At this point, the patient has no evidence of any neuro deficit. finding. The patient can be watched as an outpatient in the office. We will follow with you. MMODL / IJN: [id number] /
[2018-01-14] MEDS: MECLIZINE 25 MG TAB PO SCH (20:43)
[2018-01-14] MEDS: ATENOLOL 50 MG TAB PO SCH (20:44)
--- NOTE | 2018-01-14 21:05 | P.PN ---
Subjective Progress Note Date: 01/14/18 The patient is an 82-year-old woman who was admitted to the hospital having been found at her home on the floor. She had an elevated CK on admission and was admitted with possible syncope, UTI, dehydration, and mild rhabdomyolysis. Patient apparently did get up and walk today ate a little bit. Currently the patient is laying in bed sleeping and not cooperative to examination. She is able to speak. She is able to move her limbs. She tends to fall back to sleep. She did have a carotid ultrasound which showed stenosis and was evaluated by vascular surgery. Objective - Vital Signs Vital signs: Vital Signs Temp 98.4 F 01/14/18 15:44 Pulse 64 01/14/18 15:44 Resp 16 01/14/18 15:44 BP 152/70 01/14/18 15:44 Pulse Ox 95 01/14/18 15:44 Intake & Output 01/14/18 01/14/18 01/15/18 06:59 18:59 06:59 Intake Total 225 Balance 225 Intake: Intake, IV Titration 225 Amount Sodium Chloride 0.45% 1, 225 000 ml @ 75 mls/hr IV . [id number] [facility] Rx#:[id number] Other: Voiding Method Incontinent # Voids 1 1 - Constitutional General appearance: Present: average body habitus - EENT ENT: Present: hearing grossly normal - Respiratory Respiratory: bilateral: CTA - Cardiovascular Rhythm: regular - Neurologic Neurologic Comment(s): Neurologic examination: Mental status: Patient is very sleepy. She is arousable. She does follow commands. She is able to speak. X Cranial nerve examination: No facial asymmetry Motor examination no focal weakness detected - Labs CBC & Chem 7: 01/14/18 08:58 01/14/18 08:58 Labs: Abnormal Lab Results - Last 24 Hours (Table) 01/14/18 01/14/18 Range/Units 08:58 08:58 WBC 15.1 H (3.8-10.6) k/uL RBC 3.76 L (3.80-5.40) m/uL Hgb 10.2 L (11.4-16.0) gm/dL Hct 30.5 L (34.0-46.0) % Neutrophils # (Manual) 12.30 H (1.3-7.7) k/uL Metamyelocytes # (Man) 0.45 H (0) k/uL Myelocytes # (Manual) 0.76 H (0) k/uL Potassium 3.3 L (3.5-5.1) mmol/L Chloride 111 H (98-107) mmol/L Carbon Dioxide 20 L (22-30) mmol/L BUN 29 H (7-17) mg/dL Creatinine 1.07 H (0.52-1.04) mg/dL Glucose 149 H (74-99) mg/dL Calcium 8.0 L (8.4-10.2) mg/dL AST 39 H (14-36) U/L Total Protein 5.7 L (6.3-8.2) g/dL Albumin 2.7 L (3.5-5.0) g/dL Assessment and Plan (1) Generalized weakness Current Visit: Yes Status: Acute SNOMED Code(s): 98652365 (2) Dehydration Current Visit: Yes Status: Acute SNOMED Code(s): 87266034 (3) Urinary tract infection Current Visit: Yes Status: Acute SNOMED Code(s): 41119705 (4) Renal insufficiency Current Visit: Yes Status: Acute SNOMED Code(s): 443858459 (5) History of dizziness Current Visit: Yes Status: Acute SNOMED Code(s): 137586009 (6) Bilateral carotid artery stenosis Current Visit: Yes Status: Acute SNOMED Code(s): 08337824 Plan: The patient is a 82-year-old woman who was found at her home on the floor. She was admitted to the hospital with elevated CPK, confusion, dehydration, UTI, and acute on chronic kidney disease. She had a CT of the brain which showed age -related cerebral atrophy and chronic small vessel ischemic change. She had a carotid ultrasound that shows bilateral carotid stenosis. She was evaluated by vascular surgery who felt that she could be followed outpatient. Physical therapy and social work to assess
[2018-01-15] MEDS: ATORVASTATIN 10 MG TAB PO SCH (08:51)
[2018-01-15] MEDS: ASPIRIN 81 MG PO SCH (08:52)
[2018-01-15] MEDS: PANTOPRAZOLE 40 MG TABLET PO SCH (08:52)
[2018-01-15] MEDS: HEPARIN SODIUM,PORCINE 5,000 UNIT/ML 1 ML VIAL SQ SCH ×2 (08:52→20:45)
[2018-01-15] MEDS ORDERED: LOSARTAN 50 MG TAB PO SCH (09:00)
[2018-01-15 10:08] LABS: HCT 33.4 % (34.0-46.0); HGB 10.8 gm/dL (11.4-16.0); Hypochromasia Slight; MCH 27.2 pg (25.0-35.0); MCHC 32.3 g/dL (31.0-37.0); MCV 84.4 fL (80.0-100.0); Mean Platelet Volume 7.6; Platelet Count 284 k/uL (150-450); RBC 3.96 m/uL (3.80-5.40); RDW 14.3 % (11.5-15.5)
[2018-01-15 10:25] LABS: Calcium 8.3 mg/dL (8.4-10.2); Magnesium 1.9 mg/dL (1.6-2.3); Total Bilirubin 0.8 mg/dL (0.2-1.3); Total Protein 6.6 g/dL (6.3-8.2)
--- NOTE | 2018-01-15 10:45 | XR ---
EXAMINATION TYPE: XR chest 1V DATE OF EXAM: 01/15/2018 COMPARISON: 01/12/2018 HISTORY: Weakness and cough TECHNIQUE: Single frontal view of the chest is obtained. FINDINGS: New patchy opacities are seen peripherally within the right midlung and lower lung. Linear left basilar subsegmental atelectasis is also noted. Remaining mediastinal silhouette is stable. Dex troconvex scoliotic curvature is again present. Osseous demineralization is noted. IMPRESSION: New peripheral right-sided multifocal opacities that may represent atelectasis or early developing pneumonia. Linear left basilar atelectasis is also seen.
[2018-01-15 10:46] LABS: Potassium 5.2 mmol/L (3.5-5.1)
[2018-01-15 11:34] LABS: Band Neutrophils % 7 %; Eosinophils # (M) 0.32 k/uL (0-0.7); Lymphocytes # (M) 2.21 k/uL (1.0-4.8); Metamyelocytes # (M) 0.32 k/uL (0); Metamyelocytes % 2 %; Monocytes # (M) 0.63 k/uL (0-1.0); Myelocytes # (M) 1.11 k/uL (0); Myelocytes % 7 %; Neutrophils % (M) 66 %; Nucleated Red Blood Cells 1 /100 WBC (0-0); Total Cells Counted 200; WBC 15.8 k/uL (3.8-10.6)
[2018-01-15 11:35] LABS: Toxic Granulation Present
[2018-01-15 11:36] LABS: Anisocytosis (M) Present; Poikilocytosis (M) Present
--- NOTE | 2018-01-15 12:15 | P.PN ---
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 history significant for hypertension and hypertensive cardiovascular disease, hyperlipidemia, history of possible arthritis, patient definitely has a significant leg with barrier could not tell me exactly what happened however by reviewing the records from the emergency department patient was brought into the ER by EMS after neighbor found her on the floor according to them for appears to be more than 7 days, patient's CPK was elevated at 1000, she was found to have a mild UTI, computed tomography scan of the brain did not show any evidence of acute abnormalities, she does appear to have moderate brain atrophy, chest x-ray did not show any acute abnormalities, patient also was found to have acute kidney injury on top of what appears to be chronic kidney disease. She was started on IV fluid resuscitation the form of normal saline, this would be switched to D5 half-normal saline at 75 mL an hour. 01/14: Patient evaluated this morning, she reports she is feeling well. Carotid ultrasound shows significant bilateral plaque formation and are suggestive of more then 70% stenosis in both internal carotid arteries. Vascular surgery has been consulted. Kidney function improved, creatinine 1.07, BUN 29. EEG and echo are pending. She continues of Ceftriaxone for her UTI. 01/15: Patient evaluated this morning, she was noted to be sitting up with the bedside chair. She denies any chest pain or shortness of breath. She was consulted by vascular surgery who feels her carotid stenosis can be watched as an outpatient basis. She was switched from IV Rocephin to PO Cipro for her UTI. Potassium was replaced yesterday K was 3.3, today repeat potassium 5.2 with hemolysis, will repeat again tomorrow. PT evaluated patient today, states patient need a lot of assistance and feels she would benefit from subacute rehab. Will plan on possible ECF for rehab. Objective - Vital Signs Vital signs: Vital Signs Temp 98.5 F 01/15/18 07:30 Pulse 60 01/15/18 07:30 Resp 14 01/15/18 08:00 BP 157/78 01/15/18 07:30 Pulse Ox 96 01/15/18 07:30 Intake & Output 01/14/18 01/15/18 01/15/18 18:59 06:59 18:59 Intake Total 225 400 Balance 225 400 Intake: Intake, IV Titration 225 Amount Sodium Chloride 0.45% 1, 225 000 ml @ 75 mls/hr IV . [id number] [facility] Rx#:[id number] Oral 400 Other: Voiding Method Incontinent Incontinent # Voids 1 1 - Exam - Constitutional General appearance: average body habitus, no acute distress - EENT Eyes: anicteric sclerae, EOMI, PERRLA, no ptosis, no scleral icterus, normal appearance ENT: hearing grossly normal, normal oropharynx, no thrush Ears: bilateral: normal - Neck Neck: no lymphadenopathy, normal ROM, no rigidity, no stridor Carotids: bilateral: upstroke normal Thyroid: bilateral: normal size - Respiratory Respiratory: bilateral: diminished, negative: dullness, rales, rhonchi, wheezing , prolonged expiration, prolonged inspiration - Cardiovascular Rhythm: regular Heart sounds: normal: S1, S2 Abnormal Heart Sounds: systolic murmur, no S3 Gallop, no S4 Gallop - Gastrointestinal General gastrointestinal: normal bowel sounds, soft, no splenomegaly, no tenderness, no umbilical hernia - Integumentary Integumentary: normal, normal turgor - Neurologic Neurologic: CNII-XII intact - Musculoskeletal Musculoskeletal: generalized weakness - Psychiatric Psychiatric: A&O x's 3 - Labs CBC & Chem 7: 01/15/18 09:02 01/15/18 09:02 Labs: Abnormal Lab Results - Last 24 Hours (Table) 01/14/18 01/15/18 01/15/18 Range/Units 08:58 09:02 09:02 WBC 15.8 H (3.8-10.6) k/uL Hgb 10.8 L (11.4-16.0) gm/dL Hct 33.4 L (34.0-46.0) % Neutrophils # (Manual) 12.30 H 11.50 H (1.3-7.7) k/uL Metamyelocytes # (Man) 0.45 H 0.32 H (0) k/uL Myelocytes # (Manual) 0.76 H 1.11 H (0) k/uL Nucleated RBCs 1 H (0-0) /100 WBC Potassium 5.2 H (3.5-5.1) mmol/L Chloride 113 H (98-107) mmol/L Carbon Dioxide 20 L (22-30) mmol/L BUN 18 H (7-17) mg/dL Glucose 123 H (74-99) mg/dL Calcium 8.3 L (8.4-10.2) mg/dL AST 65 H (14-36) U/L Creatine Kinase 141 H (30-135) U/L Albumin 3.0 L (3.5-5.0) g/dL Assessment and Plan Plan: 1. Possible syncopal episode. Patient will be monitored for the next 24 hours on the telemetry. Patient has suffered from significant diseases for quite sometime as a matter fact she has been taking meclizine not short of this is peripheral dizziness or other etiology such as cardiac arrhythmias was involved. Carotid ultrasound shows carotid stenosis, vascular surgery on consult. 2. UTI with sepsis. Continue IV anabiotic in the form of Rocephin, continue IV fluid resuscitation the form of D5 half-normal saline at 75 mL an hour, IV fluids are saline locked, monitor the patient input and output, check urine culture and blood culture. 3. Acute kidney injury on top of chronic kidney disease stage III. monitor the patient CMP over the next 24 hours, kidney function has improved 4. Elevated CPK with mild rhabdo. Continue IV fluid check CPK again the next 24 hours. 5. Hypertension and hypertensive cardiovascular disease. Continue losartan 50 mg orally once every day as well as atenolol 50 mg orally once every day. 6. Hyperlipidemia. Continue Lipitor 10 mg orally once every day. 7. GERD. Continue Protonix 40 mg orally once every day. 8. DVT prophylaxis. Continue heparin 5000 units every 12 hours. 9. Patient is full code. 10. Admitted to inpatient. Estimated length of stay 2 midnights. 11. Social work consultation as well as physical therapy evaluation. The above impression and plan of care have been discussed and directed by signing physician. Stacie Gonzáles nurse practitioner acting as scribe for signing physician.
[2018-01-15] MEDS: CIPROFLOXACIN HCL 250 MG TAB PO SCH (20:45)
[2018-01-15] MEDS: MECLIZINE 25 MG TAB PO SCH (20:45)
[2018-01-15] MEDS: ATENOLOL 50 MG TAB PO SCH (20:45)
[2018-01-16] MEDS: LOSARTAN 50 MG TAB PO SCH ×2 (07:49→09:29)
[2018-01-16] MEDS: PANTOPRAZOLE 40 MG TABLET PO SCH (07:49)
[2018-01-16 09:17] LABS: Albumin 2.9 g/dL (3.5-5.0); Calcium 8.4 mg/dL (8.4-10.2); Potassium 3.9 mmol/L (3.5-5.1); Total Bilirubin 0.6 mg/dL (0.2-1.3); Total Protein 6.3 g/dL (6.3-8.2)
[2018-01-16 09:24] LABS: HCT 33.2 % (34.0-46.0); HGB 10.6 gm/dL (11.4-16.0); MCH 26.7 pg (25.0-35.0); MCHC 31.9 g/dL (31.0-37.0); MCV 83.9 fL (80.0-100.0); Mean Platelet Volume 7.2; Platelet Count 323 k/uL (150-450); RBC 3.96 m/uL (3.80-5.40); RDW 14.3 % (11.5-15.5); WBC 14.9 k/uL (3.8-10.6)
[2018-01-16] MEDS: CIPROFLOXACIN HCL 250 MG TAB PO SCH ×2 (09:29→22:04)
[2018-01-16] MEDS: ATORVASTATIN 10 MG TAB PO SCH (09:29)
[2018-01-16] MEDS: HEPARIN SODIUM,PORCINE 5,000 UNIT/ML 1 ML VIAL SQ SCH ×2 (09:29→22:04)
[2018-01-16] MEDS: ASPIRIN 81 MG PO SCH (09:29)
--- NOTE | 2018-01-16 09:34 | P.DS ---
Providers Date of admission: 01/15/18 08:30 Expected date of discharge: 01/18/18 Attending physician: Daiana Reilly Consults: 01/13/18 12:07 Consult Physician Routine Consulting Provider: Filippo Lyn Consult Reason/Comments: Syncope Do you want consulting provider notified?: Yes 01/14/18 12:59 Consult Physician Routine Consulting Provider: Rm Thomas Consult Reason/Comments: carotid stenosis Do you want consulting provider notified?: Yes Primary care physician: Angel Robertson [facility] Course: This is an 82-year-old female one of Dr. 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 history significant for hypertension and hypertensive cardiovascular disease, hyperlipidemia, history of possible arthritis, patient definitely has a significant leg with barrier could not tell me exactly what happened however by reviewing the records from the emergency department patient was brought into the ER by EMS after neighbor found her on the floor according to them for appears to be more than 7 days, patient's CPK was elevated at 1000, she was found to have a mild UTI, computed tomography scan of the brain did not show any evidence of acute abnormalities, she does appear to have moderate brain atrophy, chest x-ray did not show any acute abnormalities, patient also was found to have acute kidney injury on top of what appears to be chronic kidney disease. She was started on IV fluid resuscitation the form of normal saline, this would be switched to D5 half-normal saline at 75 mL an hour. 01/14: Patient evaluated this morning, she reports she is feeling well. Carotid ultrasound shows significant bilateral plaque formation and are suggestive of more then 70% stenosis in both internal carotid arteries. Vascular surgery has been consulted. Kidney function improved, creatinine 1.07, BUN 29. EEG and echo are pending. She continues of Ceftriaxone for her UTI. 01/15: Patient evaluated this morning, she was noted to be sitting up with the bedside chair. She denies any chest pain or shortness of breath. She was consulted by vascular surgery who feels her carotid stenosis can be watched as an outpatient basis. She was switched from IV Rocephin to PO Cipro for her UTI. Potassium was replaced yesterday K was 3.3, today repeat potassium 5.2 with hemolysis, will repeat again tomorrow. PT evaluated patient today, states patient need a lot of assistance and feels she would benefit from subacute rehab. Will plan on possible ECF for rehab. 01/16: Chest x-ray shows new peripheral right-sided multifocal opacities that may represent atelectasis or early developing pneumonia. Linear left basilar atelectasis is also present. Incentive spirometry has been added. Patient's blood pressure was high during the night and losartan increased to 100 mg daily. Patient was seen by Dr. Thomas with plan for follow-up as an outpatient as patient has no evidence of neuro deficit at this time. Patient has been followed by Dr. Zeny Lyn EEG has been obtained and report is pending. WBC is 14.9, hemoglobin 10.6. Note that urine culture was not obtained. Patient has been treated with ciprofloxacin. Physical therapy has recommended subacute rehab. Social work is following for subacute rehab scheduled for Wednesday 01/17: Blood pressure is improved. She has been afebrile. Daughter has been updated at the bedside and all questions answered. 01/18: Patient denies any new complaints but has continued generalized weakness. Daughter is at the bedside. Daughter has court date on Sunday regarding guardianship. She has completed course of antibiotics. Patient has been accepted at [facility] and will be discharged today in stable condition. Discharge diagnoses: 1. Possible syncopal episode of unclear etiology, possibly due to sepsis. 2. UTI with sepsis. 3. Acute kidney injury on top of chronic kidney disease stage III. 4. Elevated CPK with mild rhabdomyolysis. 5. Hypertension and hypertensive cardiovascular disease. 6. Hyperlipidemia. 7. GERD. Discharge plan: [facility] Impression and plan of care have been directed as dictated by the signing physician. Katty Mason nurse practitioner acting as scribe for signing physician. Patient Condition at Discharge: Good Plan - Discharge Summary Discharge Rx Participant: No New Discharge Prescriptions: New Acetaminophen Tab [Tylenol] 650 mg PO Q4HR PRN tab PRN Reason: Fever And/ Or Pain Losartan [Cozaar] 100 mg PO DAILY tab Continue Omeprazole 40 mg PO DAILY Atenolol [Tenormin] 50 mg PO HS Meclizine [Antivert] 25 mg PO HS Atorvastatin Calcium [Lipitor] 10 mg PO DAILY Aspirin [Children's Aspirin] 81 mg PO DAILY Discontinued Losartan [Cozaar] 50 mg PO DAILY Furosemide [Lasix] 20 mg PO DAILY Discharge Medication List Aspirin [Children's Aspirin] 81 mg PO DAILY 01/12/18 [History] Atenolol [Tenormin] 50 mg PO HS 01/12/18 [History] Atorvastatin Calcium [Lipitor] 10 mg PO DAILY 01/12/18 [History] Meclizine [Antivert] 25 mg PO HS 01/12/18 [History] Omeprazole 40 mg PO DAILY 01/12/18 [History] Acetaminophen Tab [Tylenol] 650 mg PO Q4HR PRN tab 01/18/18 [Rx] Losartan [Cozaar] 100 mg PO DAILY tab 01/18/18 [Rx] Follow up Appointment(s)/Referral(s): Rm Thomas MD [STAFF PHYSICIAN] - 3 Weeks Angel Robertson MD [Primary Care Provider] - 1 Week (after discharge from ECF) Discharge Disposition: TRANSFER TO SNF/ECF
[2018-01-16] MEDS ORDERED: ACETAMINOPHEN TAB 325 MG TAB PO PRN (10:23)
[2018-01-16 10:24] LABS: Band Neutrophils % 5 %; Basophils # (M) 0.15 k/uL (0-0.2); Lymphocytes # (M) 2.83 k/uL (1.0-4.8); Metamyelocytes # (M) 1.49 k/uL (0); Metamyelocytes % 10 %; Monocytes # (M) 0.75 k/uL (0-1.0); Myelocytes # (M) 0.75 k/uL (0); Myelocytes % 5 %; Neutrophils % (M) 55 %; Nucleated Red Blood Cells 0 /100 WBC (0-0); Poikilocytosis (M) Present; Total Cells Counted 200
[2018-01-16 10:25] LABS: Toxic Granulation Present
--- NOTE | 2018-01-16 12:33 | P.PN ---
Subjective Progress Note Date: 01/16/18 This is an 82-year-old female one of Dr. 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 history significant for hypertension and hypertensive cardiovascular disease, hyperlipidemia, history of possible arthritis, patient definitely has a significant leg with barrier could not tell me exactly what happened however by reviewing the records from the emergency department patient was brought into the ER by EMS after neighbor found her on the floor according to them for appears to be more than 7 days, patient's CPK was elevated at 1000, she was found to have a mild UTI, computed tomography scan of the brain did not show any evidence of acute abnormalities, she does appear to have moderate brain atrophy, chest x-ray did not show any acute abnormalities, patient also was found to have acute kidney injury on top of what appears to be chronic kidney disease. She was started on IV fluid resuscitation the form of normal saline, this would be switched to D5 half-normal saline at 75 mL an hour. 01/14: Patient evaluated this morning, she reports she is feeling well. Carotid ultrasound shows significant bilateral plaque formation and are suggestive of more then 70% stenosis in both internal carotid arteries. Vascular surgery has been consulted. Kidney function improved, creatinine 1.07, BUN 29. EEG and echo are pending. She continues of Ceftriaxone for her UTI. 01/15: Patient evaluated this morning, she was noted to be sitting up with the bedside chair. She denies any chest pain or shortness of breath. She was consulted by vascular surgery who feels her carotid stenosis can be watched as an outpatient basis. She was switched from IV Rocephin to PO Cipro for her UTI. Potassium was replaced yesterday K was 3.3, today repeat potassium 5.2 with hemolysis, will repeat again tomorrow. PT evaluated patient today, states patient need a lot of assistance and feels she would benefit from subacute rehab. Will plan on possible ECF for rehab. 01/16: Chest x-ray shows new peripheral right-sided multifocal opacities that may represent atelectasis or early developing pneumonia. Linear left basilar atelectasis is also present. Incentive spirometry has been added. Patient's blood pressure was low during the night and losartan increased to 100 mg daily. Patient was seen by Dr. Thomas with plan for follow-up as an outpatient as patient has no evidence of neuro deficit at this time. Patient has been followed by Dr. N Riki EEG has been obtained and report is pending. WBC is 14.9, hemoglobin 10.6. Note that urine culture was not obtained. Patient has been treated with ciprofloxacin. Physical therapy has recommended subacute rehab. Social work is following for subacute rehab scheduled for Sunday Review Of Systems: Constitutional: No fever, no chills, no night sweats. No weight change. No weakness, fatigue or lethargy. No daytime sleepiness. EENT: No headache. No sore throat. Lungs: No shortness of breath, cough, no sputum production. No wheezing. Cardiovascular: No chest pain, no lower extremity edema. No palpitations. No paroxysmal nocturnal dyspnea. No orthopnea. No lightheadedness or dizziness. No syncopal episodes. Abdominal: No abdominal pain. No nausea, vomiting. No diarrhea. No constipation. No bloody or tarry stools.. No loss of appetite. Genitourinary: No dysuria, no increased frequency, urgency. No urinary retention. Musculoskeletal: No myalgias. No muscle weakness, no gait dysfunction, no frequent falls. No back pain. No neck pain. Integumentary: No wounds, no lesions. No rash or pruritus. No unusual bruising. Objective - Vital Signs Vital signs: Vital Signs Temp 97.8 F 01/15/18 23:45 Pulse 61 01/16/18 06:24 Resp 16 01/15/18 23:45 BP 167/70 01/16/18 06:24 Pulse Ox 96 01/15/18 23:45 Intake & Output 01/15/18 01/16/18 01/16/18 18:59 06:59 18:59 Intake Total 1550 300 Balance 1550 300 Weight 62.596 kg Intake: Intake, IV Titration 50 300 Amount cefTRIAXone 1,000 mg In 50 300 Sodium Chloride 0.9% 50 ml @ 100 mls/hr IVPB Q24H [facility] Rx#:[id number] Oral 1500 Other: Voiding Method Incontinent # Voids 2 1 - Exam General appearance: average body habitus, no acute distress, sitting up in chair at bedside - EENT Eyes: anicteric sclerae, EOMI, PERRLA, no ptosis, no scleral icterus, normal appearance ENT: hearing grossly normal, normal oropharynx, no thrush Ears: bilateral: normal - Neck Neck: no lymphadenopathy, normal ROM, no rigidity, no stridor Carotids: bilateral: upstroke normal Thyroid: bilateral: normal size - Respiratory Respiratory: bilateral: diminished, negative: dullness, rales, rhonchi, wheezing , prolonged expiration, prolonged inspiration - Cardiovascular Rhythm: regular Heart sounds: normal: S1, S2 Abnormal Heart Sounds: systolic murmur, no S3 Gallop, no S4 Gallop - Gastrointestinal General gastrointestinal: normal bowel sounds, soft, no splenomegaly, no tenderness, no umbilical hernia - Integumentary Integumentary: normal, normal turgor - Neurologic Neurologic: CNII-XII intact - Musculoskeletal Musculoskeletal: generalized weakness - Psychiatric Psychiatric: A&O x's 3 - Labs CBC & Chem 7: 01/16/18 08:46 01/16/18 08:46 Labs: Abnormal Lab Results - Last 24 Hours (Table) 01/15/18 01/15/18 01/16/18 Range/Units 09:02 09:02 08:46 WBC 15.8 H 14.9 H (3.8-10.6) k/uL Hgb 10.8 L 10.6 L (11.4-16.0) gm/dL Hct 33.4 L 33.2 L (34.0-46.0) % Neutrophils # (Manual) 11.50 H (1.3-7.7) k/uL Metamyelocytes # (Man) 0.32 H (0) k/uL Myelocytes # (Manual) 1.11 H (0) k/uL Nucleated RBCs 1 H (0-0) /100 WBC Potassium 5.2 H (3.5-5.1) mmol/L Chloride 113 H (98-107) mmol/L Carbon Dioxide 20 L (22-30) mmol/L BUN 18 H (7-17) mg/dL Glucose 123 H (74-99) mg/dL Calcium 8.3 L (8.4-10.2) mg/dL AST 65 H (14-36) U/L Creatine Kinase 141 H (30-135) U/L Albumin 3.0 L (3.5-5.0) g/dL 01/16/18 Range/Units 08:46 WBC (3.8-10.6) k/uL Hgb (11.4-16.0) gm/dL Hct (34.0-46.0) % Neutrophils # (Manual) (1.3-7.7) k/uL Metamyelocytes # (Man) (0) k/uL Myelocytes # (Manual) (0) k/uL Nucleated RBCs (0-0) /100 WBC Potassium (3.5-5.1) mmol/L Chloride 111 H (98-107) mmol/L Carbon Dioxide (22-30) mmol/L BUN (7-17) mg/dL Glucose 113 H (74-99) mg/dL Calcium (8.4-10.2) mg/dL AST 38 H (14-36) U/L Creatine Kinase (30-135) U/L Albumin 2.9 L (3.5-5.0) g/dL Assessment and Plan Plan: 1. Possible syncopal episode of unclear etiology. No arrhythmias seen on telemetry. Patient has suffered from significant diseases for quite sometime as a matter fact she has been taking meclizine not short of this is peripheral dizziness or other etiology such as cardiac arrhythmias was involved. Carotid ultrasound shows carotid stenosis, vascular surgery consult as noted above. Patient has been followed by neurology. EEG report pending. 2. UTI with sepsis. Continue oral Cipro, monitor the patient input and output. 3. Acute kidney injury on top of chronic kidney disease stage III. kidney function has improved 4. Elevated CPK with mild rhabdo. 5. Hypertension and hypertensive cardiovascular disease. Increase losartan to 100 mg orally once every day, atenolol 50 mg orally once every day has been discontinued. 6. Hyperlipidemia. Continue Lipitor 10 mg orally once every day. 7. GERD. Continue Protonix 40 mg orally once every day. 8. DVT prophylaxis. Continue heparin 5000 units every 12 hours. 9. Patient is full code. Discharge plan: [facility] or [facility] on Sunday Impression and plan of care have been directed as dictated by the signing physician. Katty Mason nurse practitioner acting as scribe for signing physician.
[2018-01-16] MEDS: ATENOLOL 50 MG TAB PO SCH (22:04)
[2018-01-16] MEDS: MECLIZINE 25 MG TAB PO SCH (22:04)
[2018-01-17] MEDS: ATORVASTATIN 10 MG TAB PO SCH (10:00)
[2018-01-17] MEDS: HEPARIN SODIUM,PORCINE 5,000 UNIT/ML 1 ML VIAL SQ SCH ×2 (10:00→20:33)
[2018-01-17] MEDS: PANTOPRAZOLE 40 MG TABLET PO SCH (10:00)
[2018-01-17] MEDS: CIPROFLOXACIN HCL 250 MG TAB PO SCH ×2 (10:00→20:33)
[2018-01-17] MEDS: ASPIRIN 81 MG PO SCH (10:00)
[2018-01-17] MEDS: LOSARTAN 50 MG TAB PO SCH (10:01)
--- NOTE | 2018-01-17 10:48 | P.PN ---
Subjective Progress Note Date: 01/17/18 This is an 82-year-old female one of Dr. 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 history significant for hypertension and hypertensive cardiovascular disease, hyperlipidemia, history of possible arthritis, patient definitely has a significant leg with barrier could not tell me exactly what happened however by reviewing the records from the emergency department patient was brought into the ER by EMS after neighbor found her on the floor according to them for appears to be more than 7 days, patient's CPK was elevated at 1000, she was found to have a mild UTI, computed tomography scan of the brain did not show any evidence of acute abnormalities, she does appear to have moderate brain atrophy, chest x-ray did not show any acute abnormalities, patient also was found to have acute kidney injury on top of what appears to be chronic kidney disease. She was started on IV fluid resuscitation the form of normal saline, this would be switched to D5 half-normal saline at 75 mL an hour. 01/14: Patient evaluated this morning, she reports she is feeling well. Carotid ultrasound shows significant bilateral plaque formation and are suggestive of more then 70% stenosis in both internal carotid arteries. Vascular surgery has been consulted. Kidney function improved, creatinine 1.07, BUN 29. EEG and echo are pending. She continues of Ceftriaxone for her UTI. 01/15: Patient evaluated this morning, she was noted to be sitting up with the bedside chair. She denies any chest pain or shortness of breath. She was consulted by vascular surgery who feels her carotid stenosis can be watched as an outpatient basis. She was switched from IV Rocephin to PO Cipro for her UTI. Potassium was replaced yesterday K was 3.3, today repeat potassium 5.2 with hemolysis, will repeat again tomorrow. PT evaluated patient today, states patient need a lot of assistance and feels she would benefit from subacute rehab. Will plan on possible ECF for rehab. 01/16: Chest x-ray shows new peripheral right-sided multifocal opacities that may represent atelectasis or early developing pneumonia. Linear left basilar atelectasis is also present. Incentive spirometry has been added. Patient's blood pressure was high during the night and losartan increased to 100 mg daily. Patient was seen by Dr. Thomas with plan for follow-up as an outpatient as patient has no evidence of neuro deficit at this time. Patient has been followed by Dr. N Riki EEG has been obtained and report is pending. WBC is 14.9, hemoglobin 10.6. Note that urine culture was not obtained. Patient has been treated with ciprofloxacin. Physical therapy has recommended subacute rehab. Social work is following for subacute rehab scheduled for Wednesday 01/17: Blood pressure is improved. She has been afebrile. Review Of Systems: Constitutional: No fever, no chills, no night sweats. No weight change. No weakness, fatigue or lethargy. No daytime sleepiness. EENT: No headache. No sore throat. Lungs: No shortness of breath, cough, no sputum production. No wheezing. Cardiovascular: No chest pain, no lower extremity edema. No palpitations. No paroxysmal nocturnal dyspnea. No orthopnea. No lightheadedness or dizziness. No syncopal episodes. Abdominal: No abdominal pain. No nausea, vomiting. No diarrhea. No constipation. No bloody or tarry stools. No loss of appetite. Genitourinary: No dysuria, no increased frequency, urgency. No urinary retention. Musculoskeletal: No myalgias. + generalized muscle weakness, no gait dysfunction, no frequent falls. No back pain. No neck pain. Integumentary: No wounds, no lesions. No rash or pruritus. No unusual bruising. Objective - Vital Signs Vital signs: Vital Signs Temp 98.4 F 01/17/18 07:00 Pulse 61 01/17/18 07:00 Resp 15 01/17/18 07:00 BP 159/62 01/17/18 07:00 Pulse Ox 94 L 01/17/18 07:00 Intake & Output 01/16/18 01/17/18 01/17/18 18:59 06:59 18:59 Other: # Voids 1 1 # Bowel Movements 1 - Exam General appearance: average body habitus, no acute distress, sitting up in chair at bedside - EENT Eyes: anicteric sclerae, EOMI, PERRLA, no ptosis, no scleral icterus, normal appearance ENT: hearing grossly normal, normal oropharynx, no thrush Ears: bilateral: normal - Neck Neck: no lymphadenopathy, normal ROM, no rigidity, no stridor Carotids: bilateral: upstroke normal Thyroid: bilateral: normal size - Respiratory Respiratory: bilateral: diminished, negative: dullness, rales, rhonchi, wheezing , prolonged expiration, prolonged inspiration - Cardiovascular Rhythm: regular Heart sounds: normal: S1, S2 Abnormal Heart Sounds: systolic murmur, no S3 Gallop, no S4 Gallop - Gastrointestinal General gastrointestinal: normal bowel sounds, soft, no splenomegaly, no tenderness, no umbilical hernia - Integumentary Integumentary: normal, normal turgor - Neurologic Neurologic: CNII-XII intact, no neuro deficits - Musculoskeletal Musculoskeletal: generalized weakness - Psychiatric Psychiatric: A&O x's 3 - Labs CBC & Chem 7: 01/16/18 08:46 01/16/18 08:46 Labs: Abnormal Lab Results - Last 24 Hours (Table) 01/16/18 Range/Units 08:46 Neutrophils # (Manual) 8.90 H (1.3-7.7) k/uL Metamyelocytes # (Man) 1.49 H (0) k/uL Myelocytes # (Manual) 0.75 H (0) k/uL Assessment and Plan Plan: 1. Possible syncopal episode of unclear etiology. No arrhythmias seen on telemetry. Patient has suffered from significant diseases for quite sometime as a matter fact she has been taking meclizine not short of this is peripheral dizziness or other etiology such as cardiac arrhythmias was involved. Carotid ultrasound shows carotid stenosis, vascular surgery consult as noted above. Patient has been followed by neurology. EEG report remains pending. No seizure activity has been noted. 2. UTI with sepsis. Continue oral Cipro, monitor the patient input and output. 3. Acute kidney injury on top of chronic kidney disease stage III. kidney function has improved 4. Elevated CPK with mild rhabdo. 5. Hypertension and hypertensive cardiovascular disease. Increase losartan to 100 mg orally once every day, atenolol 50 mg orally once every day has been discontinued. 6. Hyperlipidemia. Continue Lipitor 10 mg orally once every day. 7. GERD. Continue Protonix 40 mg orally once every day. 8. DVT prophylaxis. Continue heparin 5000 units every 12 hours. 9. Patient is full code. Discharge plan: [facility] on Sunday pending bed availability Impression and plan of care have been directed as dictated by the signing physician. Katty Mason nurse practitioner acting as scribe for signing physician.
[2018-01-17 18:11] VITALS: RESP 16
[2018-01-17] MEDS ORDERED: ONDANSETRON 4 MG/2 ML VIAL IVP PRN (19:35)
[2018-01-17] MEDS: ATENOLOL 50 MG TAB PO SCH (20:33)
[2018-01-17] MEDS: MECLIZINE 25 MG TAB PO PRN (20:33)
[2018-01-18 08:20] LABS: MCH 27.8 pg (25.0-35.0); MCHC 33.4 g/dL (31.0-37.0); MCV 83.3 fL (80.0-100.0); Mean Platelet Volume 8.2; Platelet Count 284 k/uL (150-450); RDW 14.5 % (11.5-15.5); WBC 9.5 k/uL (3.8-10.6)
[2018-01-18 08:45] LABS: Calcium 8.4 mg/dL (8.4-10.2); Potassium 4.2 mmol/L (3.5-5.1)
[2018-01-18] MEDS: PANTOPRAZOLE 40 MG TABLET PO SCH (08:49)
[2018-01-18] MEDS: ATORVASTATIN 10 MG TAB PO SCH (08:49)
[2018-01-18] MEDS: CIPROFLOXACIN HCL 250 MG TAB PO SCH (08:49)
[2018-01-18] MEDS: ASPIRIN 81 MG PO SCH (08:49)
[2018-01-18] MEDS: LOSARTAN 50 MG TAB PO SCH (08:50)
[2018-01-18] MEDS: HEPARIN SODIUM,PORCINE 5,000 UNIT/ML 1 ML VIAL SQ SCH (08:50)
[2018-01-18] MEDS: MECLIZINE 25 MG TAB PO PRN (08:52)
[2018-01-18 09:31] VITALS: BP 121/61; PULSE 78; TEMP 98.8
== END 2018-01-18 15:34 | DRG 872 ==
LOC: EC 12:40 → 4MS4W 16:48 → INTOOBSV 16:48 → 4SSUR 01-13 15:03 → OBSVTOIN 01-15 08:30
PROVIDERS: ADMIT Internal Medicine; ATTEND Internal Medicine
DX: A41.9 Sepsis, unspecified organism (principal); J98.11 Atelectasis; M62.82 Rhabdomyolysis; N17.9 Acute kidney failure, unspecified; N39.0 Urinary tract infection, site not specified; E78.5 Hyperlipidemia, unspecified; E86.0 Dehydration; I13.10 Hypertensive heart and chronic kidney disease without heart failure, with stage 1 through stage 4 chronic kidney disease, or unspecified chronic kidney disease; I65.23 Occlusion and stenosis of bilateral carotid arteries; K21.9 Gastro-esophageal reflux disease without esophagitis; N18.3 Chronic kidney disease, stage 3 (moderate); Z79.82 Long term (current) use of aspirin; Z82.49 Family history of ischemic heart disease and other diseases of the circulatory system; Z60.2 Problems related to living alone; Z98.42 Cataract extraction status, left eye; Z98.41 Cataract extraction status, right eye
CPT/HCPCS: 36415; 70450; 71045; 71046; 80048; 80053; 80306; 81001; 82550; 82553; 83605; 83735; 84484; 85025; 85027; 85610; 85730; 93306; 93880; 95819; 96360; 96361; 99285

== ENCOUNTER 2020-08-08 12:13 | Emergency (ER) | payer MEDICARE, OTHER ==
[2020-08-08 12:28] VITALS: RESP 18; TEMP 98.1
--- NOTE | 2020-08-08 13:13 | ED ---
General Adult HPI - General Chief complaint: Back Pain/Injury Stated complaint: Back pain Time Seen by Provider: 08/08/20 12:34 Source: patient, RN notes reviewed Mode of arrival: ambulatory Limitations: no limitations - History of Present Illness Initial comments: 85-year-old female with a past medical history of hyperlipidemia, hypertension, GERD presents to the emergency room for a chief complaint of right low back pain. Patient states this started last night. Patient states she fell 3 weeks ago and was having rib pain but that resolved. Patient states that last night she went to get up to the bathroom and felt a sudden pain in her right lower back. States it has been painful to sleep. Patient states it is painful to move in certain positions. Patient denies any bladder bowel changes, saddle anesthesia, weakness of the lower extremities.Patient has no other complaints at this time including shortness of breath, chest pain, abdominal pain, nausea or vomiting, headache, or visual changes. - Related Data Home Medications Medication Instructions Recorded Confirmed RX: Aspirin [Children's Aspirin] 81 mg PO DAILY 01/12/18 01/12/18 RX: Atorvastatin Calcium [Lipitor] 10 mg PO DAILY 01/12/18 01/12/18 RX: Meclizine [Antivert] 25 mg PO HS 01/12/18 01/12/18 RX: Omeprazole 40 mg PO DAILY 01/12/18 01/12/18 RX: atenoloL [Tenormin] 50 mg PO HS 01/12/18 01/12/18 Previous Rx's Medication Instructions Recorded RX: Acetaminophen Tab [Tylenol] 650 mg PO Q4HR PRN tab 01/18/18 RX: Losartan [Cozaar] 100 mg PO DAILY tab 01/18/18 RX: Lidocaine 5% Patch [Lidoderm 1 patch TOPICAL DAILY PRN 5 Days 08/08/20 5% Patch] #5 patch methocarbamoL [Robaxin] 500 mg PO BID PRN #10 tab 08/08/20 Allergies Allergy/AdvReac Type Severity Reaction Status Date / Time No Known Allergies Allergy Verified 01/12/18 13:42 Review of Systems ROS Statement: Those systems with pertinent positive or pertinent negative responses have been documented in the HPI. ROS Other: All systems not noted in ROS Statement are negative. Past Medical History Past Medical History: GERD/Reflux, Hyperlipidemia, Hypertension, Osteoarthritis (OA) History of Any Multi-Drug Resistant Organisms: Unobtainable Past Surgical History: Unable to Obtain Additional Past Surgical History / Comment(s): Bilateral cataract surgery. Past Psychological History: Unable to Obtain Smoking Status: Never smoker Past Alcohol Use History: Rare Past Drug Use History: None Reported - Past Family History Mother Family Medical History: Coronary Artery Disease (CAD) (Mother in her 90s from CAD.) Father Family Medical History: No Reported History (Father in his 80s) Additional Family Medical History / Comment(s): Patient does not have any siblings and no kids. General Exam Limitations: no limitations General appearance: alert, in no apparent distress Head exam: Present: atraumatic, normocephalic, normal inspection Eye exam: Present: normal appearance, PERRL, EOMI. Absent: scleral icterus, conjunctival injection, periorbital swelling ENT exam: Present: normal exam, mucous membranes moist Neck exam: Present: normal inspection. Absent: tenderness, meningismus, lymphadenopathy Respiratory exam: Present: normal lung sounds bilaterally. Absent: respiratory distress, wheezes, rales, rhonchi, stridor Cardiovascular Exam: Present: regular rate, normal rhythm, normal heart sounds. Absent: systolic murmur, diastolic murmur, rubs, gallop, clicks GI/Abdominal exam: Present: soft, normal bowel sounds. Absent: distended, tenderness, guarding, rebound, rigid Extremities exam: Present: normal capillary refill (Capillary refill is 2 seconds, DP pulses 2+ bilaterally in LE) Back exam: Present: paraspinal tenderness (R lumbar paraspinal tenderness) Neurological exam: Present: alert Course Vital Signs 08/08/20 08/08/20 12:19 14:01 Temperature 98.1 F Pulse Rate 69 87 Respiratory 18 18 Rate Blood Pressure 176/94 132/79 O2 Sat by Pulse 98 99 Oximetry Medical Decision Making - Medical Decision Making Vitals are stable. Patient is well appearing. Patient is complaining of right lower back pain that started after getting out of a chair. Pain is reproducible. Hurts with movement such as twisting and standing. Neurovascular status intact in lower extremities. No red flag symptoms. Patient was given Toradol and did have significant improvement in symptoms. She is ambulating without difficulty. She was able to take herself to the bathroom. At this time patient be discharged home to follow up with primary care. She will return here for any worsening symptoms. Disposition Clinical Impression: Mechanical back pain Disposition: HOME SELF-CARE Condition: Good Instructions (If sedation given, give patient instructions): Acute Low Back Pain (ED) Additional Instructions: Please take medications as directed. Follow up with primary care. Return to the emergency department for any worsening symptoms. Prescriptions: RX: Lidocaine 5% Patch [Lidoderm 5% Patch] 1 patch TOPICAL DAILY PRN 5 Days #5 patch PRN Reason: Pain methocarbamoL [Robaxin] 500 mg PO BID PRN #10 tab PRN Reason: Pain Is patient prescribed a controlled substance at d/c from ED?: No Referrals: Angel Robertson MD [Primary Care Provider] - 1-2 days Time of Disposition: 14:17
--- NOTE | 2020-08-08 13:46 | XR ---
EXAMINATION TYPE: XR Hip RT and AP Pelvis DATE OF EXAM: 08/08/2020 COMPARISON: None HISTORY: Right hip pain TECHNIQUE: AP pelvis and two-view right hip FINDINGS: Femoral heads articulate with the acetabulum. Joint spaces may have minimal narrowing. Symp hysis pubis and sacroiliac joints are normal. Degenerative disc changes present L4-5. Fecal bolus sheri t the rectum. IMPRESSION: 1. No acute osseous abnormality right hip
--- NOTE | 2020-08-08 13:48 | XR ---
EXAMINATION TYPE: XR lumbar spine 2 or 3V DATE OF EXAM: 08/08/2020 COMPARISON: None HISTORY: Low back pain, fall TECHNIQUE: Three-view lumbar spine FINDINGS: There are 5 lumbar-type vertebral bodies. Pedicles are intact. There is narrowing disc at L 4-5 L5-S1. Minimal superior endplate change may be present at L4. Some mild superior endplate changes present L3 and L2. These are of indeterminate age. No posterior wall displacement is evident. IMPRESSION: 1. Degenerative disc changes L4-5 L5-S1. 2. Minimal superior endplate changes L2, L3 and L4 of indeterminate age. Correlate with location of t he patient's pain.
[2020-08-08 14:03] VITALS: BP 132/79; PULSE 87
[2020-08-08] MEDS ORDERED: LIDOCAINE 5% PATCH TOPICAL STA (14:15)
[2020-08-08] MEDS ORDERED: methocarbamoL 500 MG TAB PO STA (14:15)
== END 2020-08-08 14:37 | disposition home or self-care (01) ==
LOC: EC 12:13
DX: M54.5 Low back pain (principal); E78.5 Hyperlipidemia, unspecified; I10 Essential (primary) hypertension; K21.9 Gastro-esophageal reflux disease without esophagitis; M19.90 Unspecified osteoarthritis, unspecified site; Z79.82 Long term (current) use of aspirin; W18.30XA Fall on same level, unspecified, initial encounter
CPT/HCPCS: 72100; 73502; 99283

== ENCOUNTER 2024-06-19 12:56 | Emergency (ER) | payer MEDICARE, OTHER ==
[2024-06-19 13:05] VITALS: RESP 18
--- NOTE | 2024-06-19 13:31 | ED ---
Extremity Problem HPI - General Chief complaint: Extremity Problem,Nontraumatic Stated complaint: fall, R leg swelling Time Seen by Provider: 06/19/24 13:06 Source: patient, RN notes reviewed Mode of arrival: ambulatory Limitations: no limitations - History of Present Illness Initial comments: 88-year-old female presents emergency department complaint of right knee pain, ankle pain. Patient states she injured her ankle 2 weeks ago states she still having pain states that was causing swelling of her whole leg patient has any chest pain shortness of breath no headache or dizziness denies any back pain no bowel bladder and cons retention. - Related Data Home Medications Medication Instructions Recorded Confirmed Aspirin [Children's Aspirin] 81 mg PO DAILY 01/12/18 01/12/18 Atorvastatin Calcium [Lipitor] 10 mg PO DAILY 01/12/18 01/12/18 Meclizine [Antivert] 25 mg PO HS 01/12/18 01/12/18 Omeprazole 40 mg PO DAILY 01/12/18 01/12/18 atenoloL [Tenormin] 50 mg PO HS 01/12/18 01/12/18 Previous Rx's Medication Instructions Recorded Acetaminophen Tab [Tylenol] 650 mg PO Q4HR PRN tab 01/18/18 Losartan [Cozaar] 100 mg PO DAILY tab 01/18/18 Lidocaine 5% Patch [Lidoderm 5% 1 patch TOPICAL DAILY PRN 5 Days 08/08/20 Patch] #5 patch methocarbamoL [Robaxin] 500 mg PO BID PRN #10 tab 08/08/20 Allergies Allergy/AdvReac Type Severity Reaction Status Date / Time No Known Allergies Allergy Verified 01/12/18 13:42 Review of Systems ROS Statement: Those systems with pertinent positive or pertinent negative responses have been documented in the HPI. ROS Other: All systems not noted in ROS Statement are negative. Past Medical History Past Medical History: GERD/Reflux, Hyperlipidemia, Hypertension, Osteoarthritis (OA) History of Any Multi-Drug Resistant Organisms: Unobtainable Past Surgical History: Unable to Obtain Additional Past Surgical History / Comment(s): Bilateral cataract surgery. Past Psychological History: Unable to Obtain Smoking Status: Never smoker Past Alcohol Use History: Rare Past Drug Use History: None Reported - Past Family History Mother Family Medical History: Coronary Artery Disease (CAD) (Mother in her 90s from CAD.) Father Family Medical History: No Reported History (Father in his 80s) Additional Family Medical History / Comment(s): Patient does not have any siblings and no kids. General Exam Limitations: no limitations General appearance: alert, in no apparent distress Head exam: Present: atraumatic, normocephalic, normal inspection Respiratory exam: Present: normal lung sounds bilaterally. Absent: respiratory distress, wheezes, rales, rhonchi, stridor Cardiovascular Exam: Present: regular rate, normal rhythm, normal heart sounds. Absent: systolic murmur, diastolic murmur, rubs, gallop, clicks Extremities exam: Present: other (Right leg swelling noted, neurovascular intact moderate tenderness with palpation, diffuse ankle tenderness) Neurological exam: Present: alert, reflexes normal. Absent: motor sensory deficit Course Vital Signs 06/19/24 12:58 Temperature 98.2 F Pulse Rate 64 Respiratory 18 Rate Blood Pressure 172/88 O2 Sat by Pulse 97 Oximetry Procedures - Orthopedic Splinting/Casting Injury #1 Side: right Lower Extremity Injury Location: short leg, foot Lower Extremity Immobilizer: posterior splint, synthetic pre-padded splint Other Orthopedic Equipment: walker Medical Decision Making - Medical Decision Making Was pt. sent in by a medical professional or institution (, PA, MOBILE MECHANIC, urgent care, hospital, or retirement...) When possible be specific @ -No Did you speak to anyone other than the patient for history (EMS, parent, family, police, friend...)? What history was obtained from this source @ -No Did you review nursing and triage notes (agree or disagree)? Why? @ -I reviewed and agree with nursing and triage notes Were old charts reviewed (outside hosp., previous admission, EMS record, old EKG, old radiological studies, urgent care reports/EKG's, retirement records)? Report findings @ -No old charts were reviewed Differential Diagnosis (chest pain, altered mental status, abdominal pain women, abdominal pain men, vaginal bleeding, weakness, fever, dyspnea, syncope, headache, dizziness, GI bleed, back pain, seizure, CVA, palpatations, mental health, musculoskeletal)? @ -Leg fracture ankle fracture foot fracture, DVT EKG interpreted by me (3pts min.). @ -None X-rays interpreted by me (1pt min.). @ -X-ray right ankle showing evidence of acute fracture, possible metatarsal fracture X-ray right foot shows fifth metatarsal fracture CT interpreted by me (1pt min.). @ -None done U/S interpreted by me (1pt. min.). @ -Venous Doppler right leg negative for acute DVT What testing was considered but not performed or refused? (CT, X-rays, U/S, labs)? Why? @ -None What meds were considered but not given or refused? Why? @ -None Did you discuss the management of the patient with other professionals (professionals i.e. , PA, MOBILE MECHANIC, lab, RT, psych nurse, social work assistant, grass farmer, teacher, radio electronics officer, manager of case)? Give summary @ -No Was smoking cessation discussed for >3mins.? @ -No Was critical care preformed (if so, how long)? @ -No Were there social determinants of health that impacted care today? How? (Homelessness, low income, unemployed, alcoholism, drug addiction, transportation, low edu. Level, literacy, decrease access to med. care, halfway, rehab)? @ -No Was there de-escalation of care discussed even if they declined (Discuss DNR or withdrawal of care, Hospice)? DNR status @ -No What co-morbidities impacted this encounter? (DM, HTN, Smoking, COPD, CAD, Cancer, CVA, ARF, Chemo, Hep., AIDS, mental health diagnosis, sleep apnea, morbid obesity)? @ -None Was patient admitted / discharged? Hospital course, mention meds given and route, prescriptions, significant lab abnormalities, going to OR and other pertinent info. @ -[Discharge patient was splinted and will remain nonweightbearing and follow- up with orthopedics. Patient has right foot fracture. Undiagnosed new problem with uncertain prognosis? @ -No Drug Therapy requiring intensive monitoring for toxicity (Heparin, Nitro, Insulin, Cardizem)? @ -No Were any procedures done? @ -No Diagnosis/symptom? @ -Foot fracture right fifth metatarsal Acute, or Chronic, or Acute on Chronic? @ -Acute Uncomplicated (without systemic symptoms) or Complicated (systemic symptoms)? @ -Uncomplicated Side effects of treatment? @ -No Exacerbation, Progression, or Severe Exacerbation? @ -No Poses a threat to life or bodily function? How? (Chest pain, [place], [place], pneumonia, PE, COPD, DKA, ARF, appy, cholecystitis, CVA, Diverticulitis, Homicidal, Suicidal, threat to staff... and all critical care pts) @ -No Disposition Clinical Impression: Nondisplaced fracture of fifth right metatarsal bone Disposition: HOME SELF-CARE Condition: Stable Instructions (If sedation given, give patient instructions): Toe Fracture (ED) Additional Instructions: Please return to the Emergency Department if symptoms worsen or any other concerns. Is patient prescribed a controlled substance at d/c from ED?: No Referrals: Angel Robertson MD [Primary Care Provider] - 1-2 days Oliver Pruitt MD [STAFF PHYSICIAN] - 1-2 days Time of Disposition: 15:12
--- NOTE | 2024-06-19 14:32 | XR ---
EXAMINATION TYPE: XR ankle complete RT DATE OF EXAM: 06/19/2024 2:16 PM COMPARISON: None CLINICAL INDICATION: Female, 88 years old with history of pain, TECHNIQUE: XR ankle complete RT; frontal, lateral and oblique projections. FINDINGS: Lucency through the base of the fifth metatarsal suggesting fracture. No evidence of subluxation or d islocation. Kager's fat pad is intact. Mild soft tissue swelling around the ankle. No radiopaque fore ign bodies are identified. Fixation hardware in the foot first digit metatarsal partially visualized. IMPRESSION: 1. Base of fifth metatarsal fracture suggested correlate with pain. Consider dedicated foot radiograp hs. Correlate with pain on the fifth metatarsal base. 2. Subcutaneous swelling around the ankle likely secondary to underlying soft tissue injury likely se condary to questionable fracture. [facility], , 06/19/2024 2:29 PM
--- NOTE | 2024-06-19 14:55 | US ---
EXAMINATION TYPE: US venous doppler duplex LE RT DATE OF EXAM: 06/19/2024 1:28 PM COMPARISON: NONE CLINICAL INDICATION: Female, 88 years old with history of pain; Right lower leg swelling, Pain TECHNIQUE: The lower extremity deep venous system is examined utilizing real time linear array sonog yesi with graded compression, color doppler sonography, and spectral doppler. SIDE PERFORMED: Right FINDINGS: VESSELS IMAGED: Common Femoral Vein Deep Femoral Vein Greater Saphenous Vein * Femoral Vein Popliteal Vein Small Saphenous Vein * Proximal Calf Veins (* superficial vessels) Right Leg: Negative for DVT, Color Doppler imaging shows patency of the vessels. Spectral waveforms are within normal limits. IMPRESSION: No ultrasound evidence for deep venous thrombosis. [facility], , 06/19/2024 2:52 PM
--- NOTE | 2024-06-19 15:19 | XR ---
EXAMINATION TYPE: XR foot complete RT DATE OF EXAM: 06/19/2024 2:56 PM COMPARISON: Same day plain film CLINICAL INDICATION: Female, 88 years old with history of pain; PHH, pain TECHNIQUE: XR foot complete RT examined in the AP, oblique, and lateral projections. FINDINGS: Minimally displaced fracture of the metatarsal base of the fifth digit. Fixation hardware o f the first digit with screws and present intact. Soft tissue signs opacified predominantly on ankle. No additional fractures visualized. Multifocal de generation changes of the joints of the foot with osteophyte formation and joint space narrowing. Fin dings worse at first digit metatarsophalangeal joint with hallux valgus. IMPRESSION: Lucency through the fifth metatarsal confirmed, findings compatible with minimally displaced fracture of the fifth metatarsal base. [facility], , 06/19/2024 3:17 PM
[2024-06-19 15:58] VITALS: BP 177/75; PULSE 63; TEMP 98.4
== END 2024-06-19 15:59 | disposition home or self-care (01) ==
LOC: EC 12:56
DX: S92.354A Nondisplaced fracture of fifth metatarsal bone, right foot, initial encounter for closed fracture (principal); W19.XXXA Unspecified fall, initial encounter
CPT/HCPCS: 29515; 99284